=== PATIENT | male | born 1955 | race Caucasian/White ===

== ENCOUNTER 2019-12-16 16:14 | Outpatient (REF) | payer OTHER, SELFPAY ==
[2019-12-16 17:16] LABS: Blood Urea Nitrogen 16 mg/dL (9-16); Estimated Glomerular Filt Rate > 60
== END 2019-12-16 16:15 | disposition home or self-care (01) ==
LOC: HO.LAB 16:14
PROVIDERS: PCP Physician Assistant Medical; Visit Provider Otolaryngology
DX: Z01.812 Encounter for preprocedural laboratory examination (principal)
CPT/HCPCS: 82565; 84520

== ENCOUNTER 2019-12-18 13:32 | Outpatient (REF) | payer OTHER, SELFPAY ==
--- NOTE | 2019-12-18 13:45 | MR_ITS ---
EXAMINATION: MR BRAIN WITHOUT AND WITH CONTRAST CLINICAL INFORMATION: Sensorineural hearing loss, bilateral. COMPARISON: None available. TECHNIQUE: Multiplanar, multisequence imaging of the brain was performed before and after the intravenous administration of 9 mL of Gadavist. FINDINGS: The inner ear structures including the cochlea, vestibules, and semicircular canals exhibit preserved CSF signal intensity with no pathologic enhancement. The vestibular aqueducts are not enlarged. Cranial nerves VII and VIII complexes are normal in morphology. No enhancing cerebellopontine angle/retrocochlear lesion. There is no intracranial mass or abnormal intracranial enhancement. There is no acute infarction. There is no intracranial hemorrhage or extra axial collection. The ventricles, sulci, and basilar cisterns are normal in size and configuration. The flow voids of the major intracranial arteries appear intact. The bones and extracranial soft tissues are within normal limits. Small mucosal retention cyst is seen within the right sphenoid sinus. MR/MR head/brain wo/w con IMPRESSION: No vestibular schwannoma or retrocochlear lesion. No acute intracranial abnormality.
== END 2019-12-18 13:33 | disposition home or self-care (01) ==
LOC: HO.MRI 13:32
PROVIDERS: PCP Physician Assistant Medical; Visit Provider Otolaryngology
DX: H90.3 Sensorineural hearing loss, bilateral (principal)
CPT/HCPCS: 70553

== ENCOUNTER → 2019-12-23 07:55 | Outpatient (BNVA) | payer OTHER, SELFPAY | PROVIDERS: PCP Nurse Practitioner Family; Referring Provider Nurse Practitioner Family; Visit Provider Psychiatry & Neurology Neurology | DX: G47.33 Obstructive sleep apnea (adult) (pediatric) (principal) ==

== ENCOUNTER 2020-02-26 09:58 | Outpatient (REF) | payer OTHER, SELFPAY ==
[2020-02-26 10:49] LABS: Appearance Urine CLEAR; Color Urine YELLOW; Glucose Urine UA NEG (NEG); Leukocyte Esterase Urine NEG (NEG); Nitrite Urine NEG (NEG); PH 7.5 (5.0-8.0); Specific Gravity - Urine 1.015 (1.005-1.025); Urine Blood NEG (NEG); Urine Ketones NEG (NEG); Urine Protein NEG (NEG-TRACE)
[2020-02-26 10:54] LABS: Basophils Percent Auto 0.3 % (0-2); Eosinophils Percent Auto 0.7 % (0-4); Hematocrit 46.7 % (42-52); Imm Gran Abs Auto 0.01 X10*3/uL (0.00-0.03); Imm Gran Pct Auto 0.2 % (0.0-0.4); Lymphocytes Absolute Auto 1.4 X10*3/uL (1.2-4.9); Lymphocytes Percent Auto 23.3 % (20-40); MANUAL DIFF FLAG SCAN; Mean Corpuscular HGB Conc 32.1 g/dl (31.0-36.0); Mean Corpuscular Hemoglobin 31.4 pg (27.0-33.0); Mean Corpuscular Volume 97.9 fL (80-98); Mean Platelet Volume 12.2 fL (9.4-12.4); Monocytes Absolute Auto 0.4 X10*3/uL (0.1-1.2); Monocytes Percent Auto 7.5 % (2-11); PLT CLUMP 1; Red Blood Count 4.77 X10*6/uL (4.60-5.80); Red Cell Distribution Width 13.6 % (11.0-16.0); SCAN SMEAR FLAG 1
[2020-02-26 11:16] LABS: Alanine Aminotransferase 29 U/L (0-40); Albumin Level 4.4 g/dL (3.5-5.0); Alkaline Phosphatase 52 U/L (39-117); Anion Gap 14 (12-20); Aspartate Amino Transferase 24 U/L (5-37); Bilirubin Direct 0.3 mg/dL (0.0-0.5); Blood Urea Nitrogen 16 mg/dL (9-16); Calcium 9.5 mg/dL (8.4-10.2); Carbon Dioxide 25 mmol/L (22-29); Chloride 106 mmol/L (96-108); Cholesterol 228 mg/dL; Estimated Glomerular Filt Rate > 60; Glucose Random 93 mg/dL (60-115); HDL Cholesterol 54 mg/dL; LDL Cholesterol Calculated 156 mg/dl; Potassium 4.9 mmol/l (3.3-5.1); Sodium 140 mmol/L (135-145); Total Protein 6.9 g/dL (6.5-8.0); Triglycerides 94 mg/dL
[2020-02-26 11:29] LABS: White Blood Count 5.9 X10*3/uL (4.8-10.8)
[2020-02-26 11:30] LABS: Platelet Count 90 X10*3/uL (160-400); SLIDE REVIEW VERIFIED
[2020-02-26 11:36] LABS: Prostate Specific Antigen 0.81 ng/mL (<0.05-4.0)
[2020-02-27 04:23] LABS: SARS COV2 IgG Negative (Negative)
== END 2020-02-26 09:59 | disposition home or self-care (01) ==
LOC: HO.LAB 09:58
PROVIDERS: PCP Physician Assistant Medical; Visit Provider Physician Assistant Medical
DX: Z00.00 Encounter for general adult medical examination without abnormal findings (principal); G25.0 Essential tremor; F41.9 Anxiety disorder, unspecified; G47.33 Obstructive sleep apnea (adult) (pediatric); Z20.828 Contact with and (suspected) exposure to other viral communicable diseases
CPT/HCPCS: 36415; 80048; 80061; 80076; 81003; 84153; 85025; 86769

== ENCOUNTER 2020-03-05 15:58 | Outpatient (REF) | payer OTHER, SELFPAY ==
--- NOTE | 2020-03-05 16:45 | MR_ITS ---
MR LUMBAR SPINE WITHOUT CONTRAST CLINICAL INFORMATION: Chronic right-sided back pain. COMPARISON: Lumbar spine MRI 04/15/2013. TECHNIQUE: MRI of the lumbar spine was obtained using routine sequences without contrast. FINDINGS: There are 5 nonrib-bearing lumbar-type vertebral bodies. At T10-T11, there is a partially imaged left paracentral disc protrusion that flattens the ventral cord resulting in mild narrowing of the central canal. Vertebral body heights are maintained. There is mild disc volume loss there is disc desiccation at all lumbar levels. Modic type I endplate signal changes at L2-L3 and L3-L4. There is no additional bone marrow edema. There are no acute fractures. Multilevel endplate osteophytes. Conus terminates at T12-L1 level. Bilateral perinephric stranding. Right greater than left hydronephrosis versus parapelvic cysts that can be further assessed with CT. L1-L2: Significant increase in size of a left paracentral/left lateral disc protrusion that results in new mass effect on the traversing left L2 nerve root within the left subarticular zone and increasing mass effect on the extraforaminal left L1 nerve root. L2-L3: There is a diffuse annular disc bulge and there is moderate bilateral facet arthropathy and ligamentum flavum thickening. Findings in concert result in mild central canal stenosis, bilateral subarticular zone stenosis with mass effect on the traversing L3 nerve roots bilaterally, and mild bilateral foraminal encroachment. Findings have progressed. L3-L4: Diffuse annular disc bulge with a superimposed new far left lateral disc protrusion that results in mass effect on the extraforaminal left L3 nerve root. No central canal stenosis. Disc osteophyte and facet arthropathy result in moderate right foraminal stenosis with mass effect on the exiting right L3 nerve root that has progressed. L4-L5: There is a new inferiorly migrating left paracentral disc extrusion that results in mass effect on the traversing left L5 nerve root within the left subarticular zone and progressive disc osteophyte and facet arthropathy result in worsening moderate bilateral foraminal stenosis with mass effect on the exiting L4 nerve roots bilaterally. L5-S1: Shallow central disc protrusion associated with an annular fissure mildly indents the ventral thecal sac which is unchanged. Progressive far left lateral disc osteophyte protrusion compressing the extra foraminal left L5 nerve root. MR/MR lumbar spine wo con IMPRESSION: - At L5-S1, a left lateral disc osteophyte protrusion is increased in size, resulting in compression of the extraforaminal left L5 nerve root. - At L4-L5, there is a new in fairly migrating left paracentral disc extrusion that results in mass effect on the traversing left L5 nerve root within the left subarticular zone and progressive spondylitic changes result in worsening moderate bilateral foraminal stenosis with mass effect on the exiting L4 nerve roots bilaterally. - At L3-L4, a new far left lateral disc protrusion results in mass effect on the extraforaminal left L3 nerve root and progressive spondylitic changes result in worsening moderate right foraminal stenosis with mass effect on the exiting right L3 nerve - At L2-L3, progressive multifactorial degenerative changes result in worsening bilateral subarticular zone stenosis with mass effect on the traversing L3 nerve roots bilaterally. - At L1-L2, there has been an increase in size of a left paracentral/left lateral disc protrusion that results in new mass effect on the traversing left L2 nerve root within the left subarticular zone and increasing mass effect on the extraforaminal left L1 nerve root. - At T10-T11, there is a partially imaged left paracentral disc protrusion that flattens the ventral cord resulting in mild narrowing of the central canal. - Right greater than left hydronephrosis versus parapelvic cysts that can be further assessed with CT.
== END 2020-03-05 15:59 | disposition home or self-care (01) ==
LOC: HO.MRI 15:58
PROVIDERS: Visit Provider Physician Assistant Medical
DX: M54.9 Dorsalgia, unspecified (principal)
CPT/HCPCS: 72148

== ENCOUNTER 2020-03-18 14:44 | Outpatient (REF) | payer OTHER, SELFPAY ==
--- NOTE | 2020-03-18 | CT_ITS ---
EXAMINATION: CT ABDOMEN AND PELVIS WITHOUT CONTRAST CLINICAL INFORMATION: Hydronephrosis. COMPARISON: None TECHNIQUE: Multidetector volumetric imaging was performed from the superior aspect of the liver through the pubic symphysis. Sagittal and coronal reformatted images were obtained on the technologist's workstation. This CT examination was performed using dose optimization techniques as appropriate, variously including the following: *Automated exposure control *Adjustment of mA and/or kV according to patient size (this includes techniques or standardized protocols for targeted exams where dose is matched to indication/reason for exam; i.e. extremities or head) *Use of iterative reconstruction technique DLP: 627 mGy-cm FINDINGS: LUNG BASES: The visualized lung bases are unremarkable. LIVER, GALLBLADDER, AND BILIARY TREE: The liver is normal in size, slightly lobulated shape, and attenuation. No focal hepatic lesion or biliary ductal dilatation is present. The gallbladder is unremarkable with no evidence of radiopaque gallstones, gallbladder wall thickening, or obvious pericholecystic inflammatory changes. PANCREAS: Unremarkable. SPLEEN: Unremarkable. ADRENAL GLANDS: Unremarkable. KIDNEYS AND URETERS: The kidneys are normal in size, shape, and attenuation. No hydronephrosis, hydroureter, or calculi seen. No perinephric stranding. There are multiple peripelvic cysts in the right kidney. The largest cyst measures 4.5 x 3.3 cm. Differential diagnosis may include a large extrarenal kidney pelvis. However, there is no hydronephrosis suspected. A small left extrarenal kidney pelvis is noted. BLADDER: There is minimal bladder wall thickening. GASTROINTESTINAL TRACT: There is scattered stool and diverticula seen throughout the colon without any diverticulitis. The small bowel loops are normal caliber. The stomach is nondistended and appears unremarkable. ABDOMINAL WALL: No significant hernia is appreciated. LYMPH NODES: Normal. VASCULAR: Unremarkable. PELVIC VISCERA: The prostate gland is enlarged with scattered central and peripheral calcifications. No hernia or abnormal lymph nodes seen. OSSEOUS STRUCTURES: There are degenerative disc changes at the L2-L3, L3-L4 and L4-L5 disc levels with vacuum disc phenomenon and ventral spondylosis. CT/CT abdomen pelvis wo con IMPRESSION: Diffuse colonic diverticulosis without diverticulitis. Mild constipation. Right renal peripelvic cysts. Question extrarenal right renal pelvis/cyst versus UPJ. Doubt hydronephrosis. A small extrarenal left renal pelvis is seen, as well.
== END 2020-03-18 14:45 | disposition home or self-care (01) ==
LOC: HO.CT 14:44
PROVIDERS: PCP Physician Assistant Medical; Visit Provider Physician Assistant Medical
DX: N13.30 Unspecified hydronephrosis (principal)
CPT/HCPCS: 74176

== ENCOUNTER → 2020-04-01 14:20 | Outpatient (BNVA) | payer OTHER, SELFPAY | PROVIDERS: PCP Physician Assistant Medical; Visit Provider Internal Medicine | DX: R00.1 Bradycardia, unspecified (principal); I44.7 Left bundle-branch block, unspecified; I10 Essential (primary) hypertension; G47.33 Obstructive sleep apnea (adult) (pediatric); Z99.89 Dependence on other enabling machines and devices; Z82.41 Family history of sudden cardiac death | CPT/HCPCS: 93005 ==

== ENCOUNTER → 2020-05-05 13:52 | Outpatient (REF) | payer OTHER, SELFPAY ==
--- NOTE | 2020-05-05 13:56 | CA_ITS ---
Transthoracic Echocardiogram Patient (Last, First, Middle): Jensen Judd A Gender: Male Date of : 1955 Age: 65 Procedure Date: 05/05/2020 Procedure Type: Transthoracic Echocardiogram Location: OP Height: 172.72 cm Weight: 88.91 kg BSA: 2.03 m2 Heart Rate: bpm BP: 122 / 60 mmHg Quality Engineering Manager: Referring MD: Kristian Aggarwal MD Library Paraprofessional: Sae Avila MD Symptoms: I44.7 - Left bundle-branch block, unspecified Study Quality: Good ECG Rhythm: Sinus Conclusions: - 1. Normal LV systolic function with impaired relaxation filling pattern 2. Normal cardiac valvular Doppler 3. Normal RV systolic pressure 4. No pericardial effusion Findings Left Ventricle Normal left ventricular size, thickness, and systolic function. The visually estimated ejection fraction is between 55-60%. There is paradoxical septal motion consistent with a left bundle branch block. Spectral Doppler is indicative of an impaired relaxation filling pattern. E/E prime ratio is between 8 and 15 consistent with indeterminate filling pressures. Right Ventricle Normal right ventricular cavity size and systolic function. Atria Both atria are normal in size. There is lipomatous hypertrophy of the interatrial septum. There is no evidence of interatrial shunt. Aortic Valve There is mild calcification of the aortic valve. There is no aortic valve stenosis. There is no aortic valve regurgitation. Mitral Valve Normal mitral valve structure and function. There is trace mitral valve regurgitation. There is no mitral valve stenosis. Pulmonic Valve The pulmonic valve is likely normal. Tricuspid Valve Normal tricuspid valve structure. There is trace tricuspid valve regurgitation. The right ventricular systolic pressure is normal. The right ventricular systolic pressure is 21 mmHg. Normal right atrial pressure. There is no evidence of pulmonary hypertension. Great Vessels All visible segments of the aorta are normal in size. The pulmonary artery was not well visualized. Venous The inferior vena cava is normal in size and collapses greater than 50% with inspiration. Pericardium/Pleural There is no evidence of pericardial effusion. Prior Study Comparison No significant change compared to prior study dated: 08/10/2015. Measurements 2D Linear Measurements IVSd: 1.04 0.6-0.9/0.6-1.0 cm LVIDd: 4.87 3.9-5.3/4.2-5.9 cm LVIDd Index: 2.40 2.4-3.2/2.2-3.1 cm/m2 LVIDs: 3.05 2.0-3.6 cm LVPWd: 1.09 0.7-1.1 cm Ao Root: 3.50 2.1-3.5 cm LA Diam: 3.60 2.7-3.8/3.0-4.0 cm LAIDs Index: 1.77 1.5-2.3 cm/m2 LV Mass: 236.60 67-162/88-224 g LV Mass Index: 116.55 43-95/49-115 g/m2 LVOT Diam: 2.10 3.0+(-)1.3 cm 2D Systolic Function EF 4C: 50.30 >55% EF 2C: 62.80 >55% EF BiP: 57.70 >55% Mitral Valve MV Pk E: 0.76 MV PK A: 0.84 MV Decel Time: 296.00 E/A: 0.90 E'Lateral: 9.09 E'Medial: 5.51 E/E' Med: 13.70 E/E' Lat: 8.30 PHT: 87.00 MVA PHT: 2.53 Decel Treasure: 2.56 Aortic Valve AoV Pk Everett: 1.77 AoV Mn Everett: 1.18 AoV VTI: 0.40 AoV Pk Grad: 13.00 Aov Mn Grad: 7.00 SOFIA Cont.VTI: 1.82 LVOT LVOT Pk Everett: 1.03 LVOT Mn Everett: 0.74 LVOT VTI: 0.21 LVOT Pk Grad: 4.00 LVOT Mn Grad: 3.00 LVOT Diam: 2.10 LVOT Area: 3.46 Diastolic Function MV Pk E: 0.76 MV Pk A: 0.84 E/A: 0.90 E'Medial: 5.51 E/E' Med: 13.70 E' Laterial: 9.09 E/E' Lat: 8.30 Tricuspid Valve TR Pk Everett: 2.14 TR Pk Grad: 18.00 RA Press: 3.00 RVSP: 21.00 Great Vessels Aorta Ao Root-2D: 3.50 2.0-3.7 cm Ao Asc: 3.50 2.1-3.4 cm Pulmonary Valve PV Pk Everett: 1.08 Peak PV Grad: 5.00 Updated in Other Vendor System with Status of Final Sae Avila MD electronically signed on 05/05/2020 3:59:49 PM with status of Final
== END ==
LOC: HO.CARD 13:52
PROVIDERS: Visit Provider Internal Medicine
DX: I44.7 Left bundle-branch block, unspecified (principal)
CPT/HCPCS: 93306

== ENCOUNTER → 2020-05-25 10:21 | Outpatient (BNVA) | payer OTHER, SELFPAY | PROVIDERS: PCP Physician Assistant Medical; Visit Provider Psychiatry & Neurology Neurology ==

== ENCOUNTER 2020-08-16 15:00 | Outpatient (RCR) | payer OTHER, SELFPAY | END 2020-09-30 10:48 | disposition home or self-care (01) | LOC: HO.PT 15:00 | PROVIDERS: PCP Physician Assistant Medical; Visit Provider Physician Assistant | DX: M53.3 Sacrococcygeal disorders, not elsewhere classified (principal) | CPT/HCPCS: 97014; 97110; 97140; 97161; 97530 ==

== ENCOUNTER 2020-11-18 09:08 | Outpatient (REF) | payer OTHER, SELFPAY ==
--- NOTE | 2020-11-18 11:53 | MHC.AU.ANR ---
Adult Audiological Evaluation Date of Visit: 11/18/20 Reason for Appointment: Audiological re-evaluation due to concern for decreased hearing. Mr. Judd has a known bilateral, asymmetrical, sensorineural hearing loss, worse in the right ear. Following his last hearing evaluation in 2019, Mr. Judd followed up with ENT in regards to his asymmetric hearing. An MRI ruled out retrocochlear pathology. Mr. Judd feels he is now experiencing more difficulty understanding speech due to his hearing loss and often has to ask for repetition. He also has constant tinnitus in the right ear. Does patient feel they have a hearing loss?: Yes If Yes, Which Ear?: Both Ears Has hearing been tested previously?: Yes Previous Hearing Test Results: [facility] [place] - Mild to moderate sensorineural hearing loss in the right ear. Normal sloping to mild/moderate high-frequency sensorineural hearing loss in the left ear. Hearing Handicap Inventory: HHIE SCORE: 32 Based on HHIE score, patient has: Severe perceived hearing handicap Ear History: Bothersome Tinnitus/Ringing/Noises in Ears: Right Ear Blocked/Full Sensation in Ear(s): Right Ear History of occupational noise exposure?: Yes Medical History: Medical History: Headache, High Blood Pressure, Measles, Migraines, Mumps, Tobacco Use Medical History (Other): Total knee replacements, hernias Medication List: Sertraline 50 mg, Lisinopril 10 mg, Certrazine 10 mg, Ibuprofen 400 mg Otoscopy: Right Ear: Unremarkable Left Ear: Unremarkable Tympanometry: Tympanometry performed due to: To assess integrity of the middle ear system Right Ear: Normal Middle Ear System (Type A) Left Ear: Normal Middle Ear System (Type A) Hearing Evaluation: Transducer(s) Used: Insert Earphones, Bone Conduction Method: Conventional Audiometry Stimuli Used: Pure Tones Right Ear: Description of Hearing: Normal hearing at 250 Hz, sloping to a mild sensorineural hearing loss 500-3000 Hz, a moderate sensorineural hearing loss at 4000 Hz, rising to a mild hearing loss at 6000 Hz, and sloping to a moderate hearing loss at 8000 Hz. Hearing in the right ear is worse than the left by 20 dBHL at 500 Hz and 15 dBHL at 1000 and 2000 Hz. Left Ear: Description of Hearing: Normal hearing from 250-2000 Hz, sloping to a moderate sensorineural hearing loss at 3000 Hz, and rising to a mild sensorineural hearing loss from 4648-4859 Hz. Speech Recognition Threshold (SRT): Method Used: Monitored Live Voice Stimuli Used: Spondee Words Right Ear: 25 dBHL Left Ear: 10 dBHL Word Discrimination: Method: Recorded Lists Word Lists Used: NU-6 Right Ear: 96% at 70 dBHL Left Ear: 100% at 55 dBHL Comparison: Compared to the most recent evaluation: Hearing is stable. Recommendations: Audiological re-evaluation in one year. Trial with amplification is recommended. Mr. Judd is interested in trying a hearing aid for the right ear. His is a full-time [facility] and he may qualify for an employee discount. Discussed hearing aid technologies, styles, and options. He is interested in a MOY style hearing aid. Recommended that his contact HR to see if they qualify for the employee discount, then return for a hearing aid consultation to further discuss and pick out a hearing aid. Diagnosis: Primary Diagnosis: H90.3 Bilateral Sensorineural Hearing Loss Services Performed: Services Performed: Comprehensive Audiological Evaluation (CPT 02485) Tympanometry (CPT 28053) Signature: Provider: Thais Ownes, CCC-A
--- NOTE | 2020-11-18 11:55 | MHC.AU.MED ---
Medical Clearance for Hearing Instrumentation Date: 11/24/20 Patient Name: Jensen Judd Date of : 1955 Referring Provider: CHRIS Hitchcock We have seen your patient on 11/18/20 and have determined that they are a candidate for amplification (See accompanying report). Specifically, they would benefit from: Hearing aid use in the right ear There is a statute that addresses Medical Evaluation Requirements prior to fitting a patient with a hearing aid. According to [place] statute 265 CMR:6.03(1), (a) General. Except as provided in 265 CMR 6.03(1)(b), a metal hanging helper shall not sell a hearing aid unless the prospective user has presented to the metal hanging helper a written statement signed by a licensed physician that states that the patient's hearing loss has been medically evaluated and the patient may be considered a candidate for a hearing aid. The medical evaluation must have taken place within the preceding six months. Please note: Due to the [place] Statute referenced above, we cannot accept a signature other than that of a licensed physician. SAS ADMINISTRATOR and PA signatures cannot be accepted. I am in agreement with the above recommendation. There is no medical contraindication for hearing instrumentation. Physician Signature Date Physician Name (Printed)
== END 2020-11-18 09:09 | disposition home or self-care (01) ==
LOC: HO.SH 09:08
PROVIDERS: Visit Provider Physician Assistant Medical
DX: H90.3 Sensorineural hearing loss, bilateral (principal)
CPT/HCPCS: 92557; 92567

== ENCOUNTER 2020-12-14 10:55 | Outpatient (REF) | payer OTHER, SELFPAY | END 2020-12-14 10:56 | disposition home or self-care (01) | LOC: HO.LAB 10:55 | PROVIDERS: PCP Physician Assistant Medical; Visit Provider Internal Medicine | DX: Z20.822 Contact with and (suspected) exposure to COVID-19 (principal) | CPT/HCPCS: C9803; U0003; U0005 ==

== ENCOUNTER 2021-01-07 09:21 | Outpatient (REF) | payer SELFPAY ==
--- NOTE | 2021-01-07 16:00 | MHC.AU.HAS ---
Hearing Aid Evaluation Date of Visit: 01/07/21 Historical Information: Description of Hearing: Mild to moderate asymmetrical sensorineural hearing loss, right ear worse than left. Current personal amplification information, if applicable: None Summary: Mr. Judd is interested in purchasing a hearing aid for the right ear only. He and his were approved by HR for the 25% employee discount. Discussed hearing aid options. He is interested in a MOY style hearing aid with mid-range technology. 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 He uses a Panjo smart phone. Hearing Aid Prescription: Based on the individual?s shared listening needs, communication environments, dexterity, desire for connectivity, and personal preferences, the following prescription for amplification has been made: Right ear: Intensive Care Medicine Specialist: Jaco Solarsi Model: [employer]o [id number] Battery Size: 13 Color: P5- Champagne Bander Operator: Size 1 M Type of Dome: Open Plan of Care: Medical Clearance to be requested from PCP/ENT. Hearing Instrument Fitting to be scheduled when materials arrive. Hearing aid ordered. Quoted $1575 with the employee discount. Paid $350 deposit today. Owes $1225 at fitting. Primary Diagnosis: H90.3 Bilateral Sensorineural Hearing Loss Signature: Provider: Thais Owens, CCC-A
== END 2021-01-07 09:22 | disposition home or self-care (01) ==
LOC: HO.HAP 09:21
PROVIDERS: Visit Provider Physician Assistant Medical
DX: Z46.1 Encounter for fitting and adjustment of hearing aid (principal); H90.3 Sensorineural hearing loss, bilateral
CPT/HCPCS: 92591

== ENCOUNTER 2021-01-25 08:17 | Outpatient (REF) | payer SELFPAY | END 2021-01-25 08:18 | disposition home or self-care (01) | LOC: HO.HAP 08:17 | PROVIDERS: Visit Provider Physician Assistant Medical | DX: Z46.1 Encounter for fitting and adjustment of hearing aid (principal); H91.03 Ototoxic hearing loss, bilateral | CPT/HCPCS: V5257 ==

== ENCOUNTER 2021-02-10 09:35 | Outpatient (REF) | payer SELFPAY ==
--- NOTE | 2021-02-10 16:03 | MHC.AU.HFU ---
Hearing Instrument Follow-Up- Binaural Date of Visit: 02/10/21 Right Ear: Lithographic Proofer: Phonak Model: Alereoneo [id number] Serial Number: [id number] Repair Warranty: 04/11/2024 Loss and Damage Warranty: 04/11/2024 Battery Size: 13 Color: P5- Donna Campaign Developer: Size 1 M Type of Dome: Small open Type of Wax Guard: Cerushield Dispensed By: [facility] Date of Fittin01/25/21 Follow-Up Summary: Hearing aid follow-up: Mr. Judd notes that things are overall going well with the hearing aid. He notes that some noises he found loud at first, but he's already adapting and getting used to it. He does not feel he needs any adjustments at this time. Mr. Judd got a bill for $87.50 for the hearing aids. The hearing aid cost is $2100. He had a 25% discount and was quoted a total of $1575. He paid the $350 deposit on 01/07/21 ( ). He then owed $1225 for the remainder of the cost, which he paid at his hearing aid fitting on 01/25/21 ( ). When billed, the cost of the monaural hearing aid less the $350 is $1750. It appears that the 25% discount was only applied to the $1750, and not the total cost of the aid ($2100), which resulted in Mr. Judd being billed $87.50. Will discuss with supervisor fabrication department Macy Conner and the billing department. Recommendations: Recommendations: Hearing instrument maintenance in 6 months, or sooner if needed. Please contact our clinic with any questions or concerns. Diagnosis Code(s): Primary Diagnosis: H90.3 Bilateral Sensorineural Hearing Loss Signature: Provider: Thais Owens, [facility]
== END 2021-02-10 09:36 | disposition home or self-care (01) ==
LOC: HO.HAP 09:35
PROVIDERS: Visit Provider Physician Assistant Medical
DX: Z13.89 Encounter for screening for other disorder (principal)

== ENCOUNTER → 2021-04-04 12:44 | Outpatient (BNVA) | payer OTHER, SELFPAY | PROVIDERS: PCP Physician Assistant Medical; Referring Provider Physician Assistant Medical; Visit Provider Internal Medicine | DX: I44.7 Left bundle-branch block, unspecified (principal); I10 Essential (primary) hypertension; R00.1 Bradycardia, unspecified; G47.33 Obstructive sleep apnea (adult) (pediatric) | CPT/HCPCS: 93005; 99212 ==

== ENCOUNTER 2021-04-25 11:40 | Outpatient (REF) | payer OTHER, SELFPAY ==
[2021-04-25 12:18] LABS: MANUAL DIFF FLAG NO
[2021-04-25 12:44] LABS: Basophils Percent Auto 0.3 % (0-2); Eosinophils Absolute Auto 0.1 X10*3/uL (0.0-0.4); Eosinophils Percent Auto 0.8 % (0-4); Hematocrit 44.7 % (42.0-52.0); Hemoglobin 14.5 g/dl (14.0-18.0); Imm Gran Abs Auto 0.02 X10*3/uL (0.00-0.03); Imm Gran Pct Auto 0.3 % (0.0-0.4); Lymphocytes Percent Auto 31.1 % (20-40); Mean Corpuscular HGB Conc 32.4 g/dl (31.0-36.0); Mean Corpuscular Hemoglobin 31.4 pg (27.0-33.0); Mean Corpuscular Volume 96.8 fL (80.0-98.0); Mean Platelet Volume 11.4 fL (9.4-12.4); Monocytes Absolute Auto 0.5 X10*3/uL (0.1-1.2); Monocytes Percent Auto 7.5 % (2-11); Neutrophils Absolute Auto 3.8 x10*3/uL (2.0-8.3); Platelet Count 123 X10*3/uL (160-400); Red Blood Count 4.62 X10*6/uL (4.60-5.80); Red Cell Distribution Width 13.8 % (11.0-16.0); White Blood Count 6.4 X10*3/uL (4.8-10.8)
[2021-04-25 13:00] LABS: Alanine Aminotransferase 19 U/L (0-40); Albumin Level 4.2 g/dL (3.5-5.0); Alkaline Phosphatase 55 U/L (39-117); Anion Gap 11 (12-20); Aspartate Amino Transferase 18 U/L (5-37); Bilirubin Direct 0.4 mg/dL (0.0-0.5); Bilirubin Total 1.2 mg/dL (0.0-1.0); Blood Urea Nitrogen 19 mg/dL (9-16); Calcium 9.8 mg/dL (8.4-10.2); Carbon Dioxide 27 mmol/L (22-29); Chloride 105 mmol/L (96-108); Cholesterol 207 mg/dL; Estimated Glomerular Filt Rate > 60; Glucose Random 89 mg/dL (60-115); HDL Cholesterol 49 mg/dL; LDL Cholesterol Calculated 131 mg/dl; Potassium 5.1 mmol/L (3.3-5.1); Sodium 138 mmol/L (135-145); Total Protein 6.7 g/dL (6.5-8.0); Triglycerides 138 mg/dL
[2021-04-25 13:46] LABS: Appearance Urine CLEAR; Color Urine YELLOW; Glucose Urine UA NEG (NEG); Leukocyte Esterase Urine 1+ (NEG); Nitrite Urine NEG (NEG); Urine Blood NEG (NEG); Urine Ketones NEG (NEG); Urine Protein NEG (NEG-TRACE)
[2021-04-25 14:11] LABS: RBC Urine 0 /HPF (0)
== END 2021-04-25 11:41 | disposition home or self-care (01) ==
LOC: HO.LAB 11:40
PROVIDERS: PCP Physician Assistant Medical; Visit Provider Physician Assistant Medical
DX: Z00.00 Encounter for general adult medical examination without abnormal findings (principal); G25.0 Essential tremor; Z87.891 Personal history of nicotine dependence; Z12.5 Encounter for screening for malignant neoplasm of prostate
CPT/HCPCS: 36415; 80048; 80061; 80076; 81001; 85025

== ENCOUNTER → 2021-06-07 09:19 | Outpatient (BNVA) | payer OTHER, SELFPAY | PROVIDERS: PCP Physician Assistant Medical; Visit Provider Psychiatry & Neurology Neurology | DX: Z13.89 Encounter for screening for other disorder (principal) ==

== ENCOUNTER 2021-07-20 12:27 | Day surgery (SDC) | payer OTHER, SELFPAY ==
--- NOTE | 2021-07-19 09:22 | HO.ANESPROP2 ---
Documented by User: Hannah Mcginnis NP 07/19/21 09:24 HPI - Anesthesia Eval Consult details Narrative: 66yo M for Colonoscopy [facility] Active Problems Active Problems: All Active Problems (Updated 04/01/20 @ 15:54 by Kristian Aggarwal MD) Sinus bradycardia (Acute) Essential hypertension (Acute) Family history of sudden cardiac in son (Acute) LBBB (left bundle branch block) (Acute) Obstructive sleep apnea (Acute) Past Medical History Medical History Essential hypertension Family history of sudden cardiac in son LBBB (left bundle branch block) Sinus bradycardia Family History Family History Father Myocardial infarction Brother HTN (hypertension) Sister Melanoma Surgical History Surgical History (Updated 07/20/21 @ 12:42 by Raisa Swanson RN) History of total bilateral knee replacement (TKR) Hx of colonoscopy Hx of inguinal hernia surgery Social History Social History Household Members: Spouse Alcohol intake: current Alcohol intake frequency: a few times a week Patient Tobacco Use Status: Never used Tobacco Advance Directives: No Advance Directives Information Provided: Yes Current occupational status: employed Current occupation: [employer] Allergies Allergy/AdvReac Type Severity Reaction Status Date / Time No Known Allergies Allergy Verified 06/07/21 09:39 Home Medications Medication Instructions Recorded Confirmed Last Taken Type azelastine 137 mcg (0.1 %) nasal 2 spray INTRANASAL BID 04/01/20 04/04/21 Unknown History spray aerosol cetirizine 10 mg tablet (Zyrtec) 10 mg PO DAILY PRN 04/01/20 04/04/21 Unknown History sertraline 50 mg tablet 50 mg PO DAILY 04/01/20 04/04/21 Unknown History losartan 25 mg tablet 25 mg PO DAILY 06/07/21 07/20/21 History Exam Exam Date and Time: July 19, [id number] Pertinent Lab Results Pertinent Lab Results: Laboratory Tests 04/25/21 04/25/21 12:16 12:16 WBC 6.4 Hgb 14.5 Hct 44.7 Plt Count 123 L Sodium 138 Potassium 5.1 Chloride 105 Carbon Dioxide 27 BUN 19 H Creatinine 1.05 Narrative Narrative: EKG 03/2021 sinus bradycardia, 54/Min; nonspecific interventricular conduction but more towards left bundle-branch block. ECHO 04/2020 Conclusions: - 1. Normal LV systolic function with impaired relaxation filling pattern? 2. Normal cardiac valvular Doppler ? 3. Normal RV systolic pressure ? 4. No pericardial effusion ? ? Assessment and Plan Assessment Anesthesia Assessment: Chart Reviewed Documented by User: Keshawn Carrillo MD 07/20/21 14:22 [facility] Past Medical History Medical History Essential hypertension Family history of sudden cardiac in son LBBB (left bundle branch block) Sinus bradycardia Family History Family History Father Myocardial infarction Brother HTN (hypertension) Sister Melanoma Family history of problems with anesthesia: No Surgical History Surgical History (Updated 07/20/21 @ 12:42 by Raisa Swanson RN) History of total bilateral knee replacement (TKR) Hx of colonoscopy Hx of inguinal hernia surgery History of Problems with Anesthesia: No Social History Social History Household Members: Spouse Alcohol intake: current Alcohol intake frequency: a few times a week Patient Tobacco Use Status: Never used Tobacco Advance Directives: No Advance Directives Information Provided: Yes Current occupational status: employed Current occupation: [employer] Allergies Allergy/AdvReac Type Severity Reaction Status Date / Time No Known Allergies Allergy Verified 06/07/21 09:39 Home Medications Medication Instructions Recorded Confirmed Last Taken Type azelastine 137 mcg (0.1 %) nasal 2 spray INTRANASAL BID 04/01/20 04/04/21 Unknown History spray aerosol cetirizine 10 mg tablet (Zyrtec) 10 mg PO DAILY PRN 04/01/20 04/04/21 Unknown History sertraline 50 mg tablet 50 mg PO DAILY 04/01/20 04/04/21 Unknown History losartan 25 mg tablet 25 mg PO DAILY 06/07/21 07/20/21 History Exam Airway Mallampati Class: II TM Dist: >3cm Neck ROM: Full Partial: Upper Heart: rrr+[id number] Lungs: cta b/l Assessment and Plan Assessment Anesthesia Assessment: Anesthesia Plan Discussed Final Anesthetic Review Family History of Problems with Anesthesia: No History of Problems with Anesthesia: No NPO: Yes ASA Class: III Final Preanesthetic Review: No Changes in Pt Med Stat, Meds/Allgs Chart Reviewed, Consent Obtained/Reviewed and Anes Risks/Benef Reviewed Patient Risk: Intermediate Procedure Risk: Low Assessment/Block/Sedation in SS: Assess/Block/Sedation-SS Anesthetic Plan Anesthetic Plan: MAC: and Agree w/ Assess. and Plan Disposition: Standard PACU
[2021-07-20 10:11] VITALS: BMI 31.6
[2021-07-20 12:31] VITALS: BP 148/72; PULSE 54; RESP 17; TEMP 36.1; O2SAT 98
[2021-07-20] MEDS: Lactated Ringers 1,000 ML 100 ML IVCONT (12:52)
--- NOTE | 2021-07-20 14:22 | MHC.SHP ---
Pre-Procedural Eval Section A Date of Service: 07/20/21 The patient is an INPATIENT: No Changes since office visit: No Cold of Flu in the past 2 weeks, No New Medical Problems, No Changes in Medication and No Patient answered all questions The History & Physical has been completed within 30 days and I have reviewed it.: Yes Section B Chief Complaint: screening Allergies: Allergies Allergy/AdvReac Type Severity Reaction Status Date / Time No Known Allergies Allergy Verified 06/07/21 09:39 Plan I have reviewed the history and physical and performed a pertinent physical examination on my patient. No changes have occurred unless specified.
--- NOTE | 2021-07-20 14:55 | P.BOP_ITS ---
Brief Operative Note Date of Service: 07/20/21 Pre-op diagnosis: screening Post-op diagnosis: same (colon polyp) Procedure: colonoscopy Surgeon: Daniel Alfredo Anesthesia: MAC Was an Specification Writer used for this Procedure?: No Estimated blood loss (mL): 5 Pathology: other Condition: stable Disposition: PACU
[2021-07-20 14:57] VITALS: BP 94/44; PULSE 54; RESP 16; TEMP 36.4; O2SAT 95
[2021-07-20 15:13] VITALS: BP 110/57; PULSE 57; RESP 18; TEMP 36.4; O2SAT 97
--- NOTE | 2021-07-21 04:58 | OP_ITS ---
SURGEON: Daniel Alfredo MD INDICATIONS: Colon cancer screening and prior history of adenomatous colon polyps. PREOPERATIVE DIAGNOSIS: POSTOPERATIVE DIAGNOSIS: PROCEDURE PERFORMED: ESTIMATED BLOOD LOSS: COMPLICATIONS: ANESTHESIA: ASSISTANTS: SPECIMENS: PROCEDURE: Colonoscopy to the terminal ileum with snare polypectomy and biopsy. MEDICATIONS: Monitored anesthesia care. DESCRIPTION OF PROCEDURE: The history and physical were performed. The risks and benefits of the procedure were explained to the patient. Informed consent was obtained. The patient was placed in the left lateral decubitus position. A digital rectal exam was performed and was found to be normal. The Olympus pediatric videocolonoscope was introduced into the rectum and advanced to the cecum without difficulty. The cecum was identified by transillumination, palpation, and identification of the ileocecal valve. Examination was performed. The scope was removed. He tolerated the procedure well and was taken to Recovery in stable condition. FINDINGS: The terminal ileum was normal. The visualized colonic mucosa was normal. The quality of prep was good. In the cecum was an 8-mm polyp, which was removed with a snare and recovered via suction. There were no other polyps identified. There was moderate sigmoid diverticulosis with a few scattered diverticula throughout the remainder of the colon. In the rectum on retroflexed view was a 10-mm area suspicious for possible anal condyloma, which the patient has been treated for in the past. Two biopsies were obtained from this area in the vicinity of the dentate line. No other polyps were identified. Retroflexed examination was otherwise normal and small internal hemorrhoids were noted. IMPRESSION: 1. Colon polyp. 2. Rule out condyloma. MD ESTHER Rodriguez/JORGEL / [id number]
== END 2021-07-20 15:50 | disposition home or self-care (01) ==
PROVIDERS: PCP Physician Assistant Medical; Visit Provider Internal Medicine Gastroenterology
PROC: 0DJD8ZZ Inspection of Lower Intestinal Tract, Via Natural or Artificial Opening Endoscopic (ICD-10-PCS; CPT 45378; principal; 2021-07-20 13:40)
CPT/HCPCS: 88305

== ENCOUNTER 2021-09-07 16:28 | Outpatient (REF) | payer OTHER, SELFPAY ==
--- NOTE | ~2021-09-07 | US_ITS ---
EXAMINATION: US RETROPERITONEAL LIMITED (RENAL ONLY) CLINICAL INFORMATION: Cyst of kidney. COMPARISON: CT abdomen and pelvis 09/15/2020. TECHNIQUE: Real-time imaging of the kidneys. FINDINGS: RIGHT KIDNEY: 10.4 x 6.7 x 5.8 cm (SAG x AP x TRV). The kidney is normal in size, contour, and echogenicity. Renal cortical thickness is normal. No renal calculi or hydronephrosis. There is a 2.9 x 4.7 x 3.0 cm parapelvic cyst with question extrarenal pelvis. Within the midpole region there is a 1.2 x 1.1 x 1.0 cm complex cyst with soft tissue component. No definite internal vascularity is present. This has the appearance of a Bosniak 2F cyst. LEFT KIDNEY: 10.8 x 4.5 x 5.1 cm (SAG x AP x TRV). The kidney is normal in size, contour, and echogenicity. Renal cortical thickness is normal. No calculi or focal parenchymal lesions. No hydronephrosis. ADDITIONAL FINDINGS: Splenomegaly is present with vertical span of greater than 15 cm. US/US renal BI IMPRESSION: Splenomegaly. Right renal midpole complex cyst for which follow-up is recommended..
== END 2021-09-07 16:29 | disposition home or self-care (01) ==
LOC: HO.US 16:28
PROVIDERS: Visit Provider Urology
DX: N28.1 Cyst of kidney, acquired (principal)
CPT/HCPCS: 76775

== ENCOUNTER → 2021-09-08 13:48 | Outpatient (BNVA) | payer OTHER, SELFPAY | PROVIDERS: PCP Physician Assistant Medical; Referring Provider Internal Medicine Gastroenterology; Visit Provider Surgery | DX: A63.0 Anogenital (venereal) warts (principal) | CPT/HCPCS: 46600 ==

== ENCOUNTER 2021-09-30 08:54 | Day surgery (SDC) | payer OTHER, SELFPAY ==
[2021-09-23 18:01] VITALS: BMI 29.7
--- NOTE | 2021-09-28 15:11 | HO.ANESPROP2 ---
Documented by User: Hannah Mcginnis NP 09/28/21 15:16 HPI - Anesthesia Eval Consult details Narrative: 66yo M for Exam Under Anesthesia,excision of anal condyloma PMFSH Active Problems Active Problems: All Active Problems (Updated 09/23/21 @ 18:06 by Deisy Casey RN) Obstructive sleep apnea (Acute) Anal condyloma (Acute) Sinus bradycardia (Acute) Essential hypertension (Acute) Family history of sudden cardiac in son (Acute) LBBB (left bundle branch block) (Acute) Past Medical History Medical History (Updated 09/23/21 @ 18:06 by Deisy Casey RN) Anal condyloma Anxiety Essential hypertension Family history of sudden cardiac in son Kidney, benign tumor LBBB (left bundle branch block) Sinus bradycardia Family History Family History Father Myocardial infarction Brother HTN (hypertension) Sister Melanoma Family history of problems with anesthesia: No Surgical History Surgical History History of total bilateral knee replacement (TKR) Hx of colonoscopy Hx of inguinal hernia surgery History of Problems with Anesthesia: No Social History Social History Household Members: Spouse Alcohol intake: current Alcohol intake frequency: a few times a week Patient Tobacco Use Status: Never used Tobacco Use of substances other than those prescribed or required for medical reasons: No Are you DNR?: No Advance Directives: No Advance Directives Information Provided: Yes Recently lost weight without trying: No Current occupational status: employed Current occupation: [employer] Allergies Allergy/AdvReac Type Severity Reaction Status Date / Time No Known Allergies Allergy Verified 09/08/21 13:56 Home Medications Medication Instructions Recorded Confirmed Last Taken Type azelastine 137 mcg (0.1 %) nasal 2 spray intranasal BID 04/01/20 09/08/21 Unknown History spray aerosol sertraline 50 mg tablet 50 mg PO DAILY 04/01/20 09/08/21 Unknown History losartan 25 mg tablet 25 mg PO DAILY 06/07/21 09/08/21 09/30/21 History Exam Exam Date and Time: September 28, 2021 151 Height,Weight and Vital Signs: Height 5 ft 8 in Weight 88.904 kg Pertinent Lab Results Pertinent Lab Results: Laboratory Tests 04/25/21 04/25/21 12:16 12:16 WBC 6.4 Hgb 14.5 Hct 44.7 Plt Count 123 L Sodium 138 Potassium 5.1 Chloride 105 Carbon Dioxide 27 BUN 19 H Creatinine 1.05 Narrative Narrative: ECHO Conclusions: - 1. Normal LV systolic function with impaired relaxation filling pattern? 2. Normal cardiac valvular Doppler ? 3. Normal RV systolic pressure ? 4. No pericardial effusion? Assessment and Plan Assessment Anesthesia Assessment: Chart Reviewed Final Anesthetic Review Family History of Problems with Anesthesia: No History of Problems with Anesthesia: No Documented by User: Ace Hoffman MD 09/30/21 12:54 HPI - Anesthesia Eval Consult details Narrative: 66yo M for Exam Under Anesthesia,excision of anal condyloma Chronic LBBB, chronic sinus bradycardia.? As per cardiology visit , he has family history of sudden cardiac in his son who while he was a teenager and exercising on the treadmill suspected to be some cardiac arrhythmia.? Another son has atrial septal defect that was repaired and doing well.? Third son is doing well.? Patient does not have any symptoms like angina or shortness of breath . [facility] Past Medical History Medical History (Updated 09/23/21 @ 18:06 by Deisy Casey RN) Anal condyloma Anxiety Essential hypertension Family history of sudden cardiac in son Kidney, benign tumor LBBB (left bundle branch block) Sinus bradycardia Family History Family History Father Myocardial infarction Brother HTN (hypertension) Sister Melanoma Family history of problems with anesthesia: Yes (Ponv in sister ) Surgical History Surgical History History of total bilateral knee replacement (TKR) Hx of colonoscopy Hx of inguinal hernia surgery Social History Social History Household Members: Spouse Alcohol intake: current Alcohol intake frequency: a few times a week Patient Tobacco Use Status: Never used Tobacco Use of substances other than those prescribed or required for medical reasons: No Are you DNR?: No Advance Directives: No Advance Directives Information Provided: Yes Recently lost weight without trying: No Current occupational status: employed Current occupation: [employer] Allergies Allergy/AdvReac Type Severity Reaction Status Date / Time No Known Allergies Allergy Verified 09/08/21 13:56 Home Medications Medication Instructions Recorded Confirmed Last Taken Type azelastine 137 mcg (0.1 %) nasal 2 spray intranasal BID 04/01/20 09/08/21 Unknown History spray aerosol sertraline 50 mg tablet 50 mg PO DAILY 04/01/20 09/08/21 Unknown History losartan 25 mg tablet 25 mg PO DAILY 06/07/21 09/08/21 09/30/21 History Exam Airway Mallampati Class: III Neck ROM: Full Denture: Upper Loose/Missing/Broken Teeth: Yes (Poor dentition , fillings ) Heart: S1,S2 Lungs: b/l breath sounds Assessment and Plan Assessment Anesthesia Assessment: Anesthesia Plan Discussed Final Anesthetic Review Family History of Problems with Anesthesia: Yes (Ponv in sister ) NPO: Yes ASA Class: III Final Preanesthetic Review: Meds/Allgs Chart Reviewed, Consent Obtained/Reviewed and Anes Risks/Benef Reviewed Patient Risk: Intermediate Procedure Risk: Intermediate Anesthetic Plan Anesthetic Plan: GA Disposition: Standard PACU
[2021-09-30] VITALS (7 sets, daily range): BP systolic 100–126; BP diastolic 39–72; PULSE 46–63; RESP 16; TEMP 36.5–36.7; O2SAT 97–100
--- NOTE | 2021-09-30 10:02 | MHC.SHP ---
Pre-Procedural Eval Section A Date of Service: 09/30/21 The patient is an INPATIENT: No Changes since office visit: No Cold of Flu in the past 2 weeks, No New Medical Problems, No Changes in Medication and No Patient answered all questions The History & Physical has been completed within 30 days and I have reviewed it.: Yes Section B Chief Complaint: Anogenital (venereal) warts Allergies: Allergies Allergy/AdvReac Type Severity Reaction Status Date / Time No Known Allergies Allergy Verified 09/08/21 13:56 Plan I have reviewed the history and physical and performed a pertinent physical examination on my patient. No changes have occurred unless specified.
--- NOTE | 2021-09-30 11:13 | P.OP_ITS ---
Operative Note Operative Note Date of Service: 09/30/21 Narrative: Preop diagnosis: Anal condyloma Postop diagnosis: Anal condyloma Procedure: Exam under anesthesia, excision and fulguration of anal condyloma Surgeon: Brian Rutherford MD The patient is a 66-year-old male referred to me because of small condylomatous lesions in the anus seen on colonoscopy. He understood the technique of exam under anesthesia and excision and fulguration of the condylomas. He was aware of the risks, benefits, and alternatives . He was brought the operating room. He was placed in prone romain-knife position under general anesthesia via endotracheal tube.. The buttocks were retracted with wide tape laterally. The perianal area was prepped and draped in the usual sterile fashion. A surgical time-out was done. The patient received Cefotan 2 g IV preoperatively. The perianal area was infiltrated with lidocaine 1%. Examination of the a perianal skin did not reveal any large condylomatous lesions. I inserted the Claudia Uribe retractor. I examined the anal canal circumferentiall y. There was note of small condylomatous lesions scattered throughout the anal canal both and proximal to the dentate line. I excised one of the larger condylomatous lesions for pathology. I fulgurated the rest of the other smaller lesions down to agrees eschar. I repeatedly examined the entire circumference of the anal canal and there were no lesions seen at the end of the procedure. I infiltrated the perianal area with Marcaine 0.5% for post up analgesia. The patient tolerated procedure well. There were no immediate complications. There was minimal blood loss . The patient was extubated without difficulty and transferred to the recovery room with stable vital signs.
[2021-09-30] MEDS: oxyCODONE HCl Immed Release 5 MG TABLET PO (12:00)
== END 2021-09-30 12:50 | disposition home or self-care (01) ==
PROVIDERS: Visit Provider Surgery
PROC: (CPT 46922; principal; 2021-09-30 10:30)
DX: A63.0 Anogenital (venereal) warts (principal); K62.82 Dysplasia of anus; I10 Essential (primary) hypertension; I44.7 Left bundle-branch block, unspecified; R00.1 Bradycardia, unspecified; Z82.41 Family history of sudden cardiac death; Z79.899 Other long term (current) drug therapy; Z96.653 Presence of artificial knee joint, bilateral
CPT/HCPCS: 46922; 88305; J0131; J0330; J1100; J2250; J2405; J2795; J3010

== ENCOUNTER → 2022-03-23 08:30 | Outpatient (REF) | payer OTHER, SELFPAY ==
--- NOTE | 2022-03-23 08:32 | CA_ITS ---
Transthoracic Echocardiogram Patient (Last, First, Middle): Jensen Judd A Gender: Male Date of : 1955 Age: 66 Procedure Date: 03/23/2022 Procedure Type: Transthoracic Echocardiogram Location: OP Height: 172.72 cm Weight: 91.17 kg BSA: 2.05 m2 Heart Rate: bpm BP: 122 / 72 mmHg Weekend Anchor: TO Referring MD: Kristian Aggarwal MD Symptoms: I44.7 - Left bundle-branch block, unspecified Study Quality: Fair ECG Rhythm: Sinus Conclusions: - The left ventricular systolic function is normal. The calculated ejection fraction is 56% by biplane method. - No obvious valvular pathology seen on this study. Findings Left Ventricle Normal left ventricular cavity size. The left ventricular systolic function is normal. The calculated ejection fraction is 56% by biplane method. There is no evidence of regional wall motion abnormalities. Diastolic function is normal for age. There is mild septal asymmetric hypertrophy. LV peak GLS 18.8%. Right Ventricle Normal right ventricular cavity size and systolic function. Atria Both atria are normal in size. Aortic Valve There is a normal trileaflet aortic valve. There is mild calcification of the aortic valve. There is no aortic valve stenosis. There is no aortic valve regurgitation. Mitral Valve The mitral valve appears normal. There is trace mitral valve regurgitation. There is no mitral valve stenosis. Pulmonic Valve The pulmonic valve is likely normal. Tricuspid Valve Normal tricuspid valve structure. There is trace tricuspid valve regurgitation. There is no evidence of pulmonary hypertension. Great Vessels The aortic annulus, sinuses of valsalva, and asc aorta are normal in size. Venous The inferior vena cava is normal in size and collapses greater than 50% with inspiration. Pericardium/Pleural There is no evidence of pericardial effusion. Prior Study Comparison No significant change compared to prior study dated: 05/05/2020. Recommendations, Care & Conclusions No obvious valvular pathology seen on this study. Measurements 2D Linear Measurements IVSd: 1.21 0.6-0.9/0.6-1.0 cm LVIDd: 5.21 3.9-5.3/4.2-5.9 cm LVIDd Index: 2.54 2.4-3.2/2.2-3.1 cm/m2 LVIDs: 3.40 2.0-3.6 cm LVPWd: 0.81 0.7-1.1 cm LA Diam: 3.50 2.7-3.8/3.0-4.0 cm LAIDs Index: 1.71 1.5-2.3 cm/m2 LV Mass: 245.97 67-162/88-224 g LV Mass Index: 119.99 43-95/49-115 g/m2 LVOT Diam: 2.10 3.0+(-)1.3 cm 2D Systolic Function EF 4C: 50.20 >55% EF 2C: 60.20 >55% EF BiP: 56.20 >55% Mitral Valve MV Pk E: 0.58 MV PK A: 0.72 MV Decel Time: 348.00 E/A: 0.80 E'Lateral: 7.29 E'Medial: 4.68 E/E' Med: 12.50 E/E' Lat: 8.00 PHT: 102.00 MVA PHT: 2.16 Decel [place]: 1.67 Aortic Valve AoV Pk [place]: 1.59 AoV Mn [place]: 1.18 AoV VTI: 0.35 AoV Pk Grad: 10.00 Aov Mn Grad: 6.00 SOFIA Cont.VTI: 2.01 LVOT LVOT Pk [place]: 0.93 LVOT Mn [place]: 0.64 LVOT VTI: 0.21 LVOT Pk Grad: 3.00 LVOT Mn Grad: 2.00 LVOT Diam: 2.10 LVOT Area: 3.46 Diastolic Function MV Pk E: 0.58 MV Pk A: 0.72 E/A: 0.80 E'Medial: 4.68 E/E' Med: 12.50 E' Laterial: 7.29 E/E' Lat: 8.00 Right Ventricle TAPSE (mm): 26.90 TVS' [place]: 11.60 Tricuspid Valve TR Pk [place]: 2.16 TR Pk Grad: 19.00 RA Press: 3.00 RVSP: 22.00 Great Vessels Aorta Sinus of Valsalva: 3.58 2.0-3.[address] [place]: 2.97 1.7-3.4 cm Ao Asc: 3.70 2.1-3.4 cm Updated in Other Vendor System with Status of Final Kristian Aggarwal MD electronically signed on 03/25/2022 11:31:19 AM with status of Final
== END ==
LOC: HO.CARD 08:30
PROVIDERS: Visit Provider Internal Medicine
DX: I44.7 Left bundle-branch block, unspecified (principal)
CPT/HCPCS: 93306; 93356

== ENCOUNTER → 2022-04-03 08:22 | Outpatient (BNVA) | payer OTHER, SELFPAY | PROVIDERS: Visit Provider Internal Medicine | DX: R00.1 Bradycardia, unspecified (principal) | CPT/HCPCS: 93005 ==

== ENCOUNTER 2022-04-26 09:21 | Outpatient (REF) | payer OTHER, SELFPAY ==
[2022-04-26 09:36] LABS: MANUAL DIFF FLAG NO
[2022-04-26 10:48] LABS: Appearance Urine Clear; Color Urine Yellow; Glucose Urine UA Negative (Negative); Leukocyte Esterase Urine Trace (Negative); Nitrite Urine Negative (Negative); UMIC TRIGGER UA YES; Urine Blood Negative (Negative); Urine Ketones Negative (Negative); Urine Protein 30 (1+) mg/dL (Neg-Trace)
[2022-04-26 10:48] LABS: Basophils Percent Auto 0.3 % (0-2); Eosinophils Absolute Auto 0.1 X10*3/uL (0.0-0.4); Eosinophils Percent Auto 0.8 % (0-4); Hematocrit 46.3 % (42.0-52.0); Hemoglobin 15.1 g/dl (14.0-18.0); Imm Gran Abs Auto 0.01 X10*3/uL (0.00-0.03); Imm Gran Pct Auto 0.2 % (0.0-0.4); Lymphocytes Absolute Auto 1.7 X10*3/uL (1.2-4.9); Lymphocytes Percent Auto 27.6 % (20-40); Mean Corpuscular HGB Conc 32.6 g/dl (31.0-36.0); Mean Corpuscular Hemoglobin 31.3 pg (27.0-33.0); Mean Corpuscular Volume 95.9 fL (80.0-98.0); Mean Platelet Volume 11.3 fL (9.4-12.4); Monocytes Absolute Auto 0.4 X10*3/uL (0.1-1.2); Monocytes Percent Auto 7.1 % (2-11); Platelet Count 141 X10*3/uL (160-400); Red Blood Count 4.83 X10*6/uL (4.60-5.80); Red Cell Distribution Width 13.7 % (11.0-16.0); White Blood Count 6.2 X10*3/uL (4.8-10.8)
[2022-04-26 10:54] LABS: Bacteria Urine None Seen (None Seen); Hyaline Casts Urine 0-2 /LPF (0-2); RBC Urine 0-2 /HPF (0-2); Squamous Epithelial Cell Urine 0-2 /HPF (0-2); WBC Urine 0-5 /HPF (0-5)
[2022-04-26 12:13] LABS: Alanine Aminotransferase 20 U/L (0-40); Albumin Level 4.4 g/dL (3.5-5.0); Alkaline Phosphatase 60 U/L (39-117); Anion Gap 13 (12-20); Aspartate Amino Transferase 18 U/L (5-37); Bilirubin Direct 0.3 mg/dL (0.0-0.5); Bilirubin Total 1.6 mg/dL (0.0-1.0); Blood Urea Nitrogen 17 mg/dL (9-16); Calcium 9.8 mg/dL (8.4-10.2); Carbon Dioxide 27 mmol/L (22-29); Chloride 106 mmol/L (96-108); Cholesterol 235 mg/dL; Estimated Glomerular Filt Rate > 60; Glucose Random 84 mg/dL (60-115); HDL Cholesterol 46 mg/dL; LDL Cholesterol Calculated 161 mg/dl; Potassium 5.1 mmol/L (3.3-5.1); Sodium 141 mmol/L (135-145); Total Protein 7.1 g/dL (6.5-8.0); Triglycerides 142 mg/dL
[2022-04-26 12:15] LABS: Prostate Specific Antigen 0.72 ng/mL (<0.05-4.0)
== END 2022-04-26 09:22 | disposition home or self-care (01) ==
LOC: HO.LAB 09:21
PROVIDERS: PCP Physician Assistant Medical; Visit Provider Physician Assistant Medical
DX: G25.0 Essential tremor (principal); F41.9 Anxiety disorder, unspecified; K58.9 Irritable bowel syndrome, unspecified; Z87.891 Personal history of nicotine dependence; Z12.5 Encounter for screening for malignant neoplasm of prostate; I10 Essential (primary) hypertension; I44.7 Left bundle-branch block, unspecified; G47.33 Obstructive sleep apnea (adult) (pediatric); E66.3 Overweight; E78.5 Hyperlipidemia, unspecified; I30.9 Acute pericarditis, unspecified
CPT/HCPCS: 36415; 80048; 80061; 80076; 81001; 84153; 85025

== ENCOUNTER 2022-05-12 15:31 | Outpatient (REF) | payer OTHER, SELFPAY ==
[2022-05-12 19:49] LABS: Appearance Urine Clear; Color Urine Yellow; Glucose Urine UA Negative (Negative); Leukocyte Esterase Urine Trace (Negative); Nitrite Urine Negative (Negative); PH 5.5 (5.0-9.0); Specific Gravity - Urine 1.015 (1.005-1.025); UMIC TRIGGER UA YES; Urine Blood Negative (Negative); Urine Ketones Negative (Negative); Urine Protein Negative (Neg-Trace)
[2022-05-12 20:02] LABS: Bacteria Urine None Seen (None Seen); Hyaline Casts Urine 0-2 /LPF (0-2); RBC Urine 0-2 /HPF (0-2); Squamous Epithelial Cell Urine 0-2 /HPF (0-2); WBC Urine 0-5 /HPF (0-5)
== END 2022-05-12 15:32 | disposition home or self-care (01) ==
LOC: HO.LAB 15:31
PROVIDERS: PCP Physician Assistant Medical; Visit Provider Physician Assistant Medical
DX: R77.9 Abnormality of plasma protein, unspecified (principal)
CPT/HCPCS: 81001

== ENCOUNTER 2022-08-08 08:17 | Outpatient (REF) | payer OTHER, SELFPAY | END 2022-08-08 08:18 | disposition home or self-care (01) | LOC: HO.SH 08:17 | PROVIDERS: Visit Provider Physician Assistant Medical | DX: Z01.118 Encounter for examination of ears and hearing with other abnormal findings (principal); H90.3 Sensorineural hearing loss, bilateral; H93.19 Tinnitus, unspecified ear | CPT/HCPCS: 92552; 92556; 92567 ==

== ENCOUNTER 2022-09-28 13:53 | Outpatient (AMB) | payer OTHER, SELFPAY ==
--- NOTE | 2022-09-28 14:57 | AM.OFFVISNUR ---
Intake Intake Visit Reasons: EKG Planning Manager Required: No Accompanied by: Self / Same As Patient Allergies No Known Allergies Allergy (Verified 09/28/22 14:57) Nursing Note Patient seen in office for today for EKG. Pt reported fluctuating heart rates detected by his smart watch ranging from 40-120BPM. He c/o dizziness, fatigie and chest discomfort. EKG shows sinus bradycardia with heart rate of 52BPM. EKG reviewed by Dr. Aggarwal. Will order a 7 day holter. Patient aware and understands. Office Procedures EKG [id number], Complete Coding Diagnoses CPT Codes EKG - CPT: 58469-[id number], Complete ([id number])
== END 2022-09-28 14:56 | disposition home or self-care (01) ==
PROVIDERS: PCP Physician Assistant Medical; Visit Provider Internal Medicine
DX: R00.1 Bradycardia, unspecified (principal); R94.31 Abnormal electrocardiogram [ECG] [EKG]
CPT/HCPCS: 93010; 93244

== ENCOUNTER → 2022-09-28 13:53 | Outpatient (BNVA) | payer OTHER, SELFPAY | PROVIDERS: PCP Physician Assistant Medical; Visit Provider Internal Medicine ==

== ENCOUNTER → 2022-09-28 14:58 | Outpatient (REF) | payer OTHER, SELFPAY ==
--- NOTE | 2022-09-28 15:04 | HM_ITS ---
Conclusion: 1. Patient was monitored for total period of 7 days 2. Baseline was normal sinus rhythm with average heart of 56 beats per minute 3. Frequent sinus bradycardia with 67% of time heart rate below 60 beats per minute with no significant pauses 4. Frequent PVCs with total burden of 1.5% with 1 4 beat radha of nonsustained VT at 121 beats per minute 5. Occasional PACs noted with no significant SVT episodes 6. No patient reported events but marked the counter 1 time which correlated with PVCs MTDD
== END ==
LOC: HO.CARD 14:58
PROVIDERS: Visit Provider Internal Medicine
DX: I44.7 Left bundle-branch block, unspecified (principal); R00.0 Tachycardia, unspecified; R00.1 Bradycardia, unspecified
CPT/HCPCS: 93005; 93242

== ENCOUNTER 2022-10-16 15:14 | Outpatient (AMB) | payer OTHER, SELFPAY ==
--- NOTE | 2022-10-16 15:25 | A.OFFVIS_ITS ---
Intake Vital Signs 10/16/22 15:33 Height 5 ft 8 in Weight 208 lb 6 oz BMI 31.7 BP 166/86 H Blood Pressure Location Lt brachial Position Sitting Pulse 64 Intake Visit Reasons: one year post exc. anal condyloma Intake Note: Patient is seen in office for one year follow up visit, following anal condyloma. 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 anal condyloma HPI Details He had undergone excision and fulguration of anal condyloma last September,. He had AIN 1 at that time. I had instructed him to come back within a year so we can repeat his anoscopy and re-examine his anus. He denies any significant complaints at this time. Denies any palpable masses in the anus. He has good bowel movements. He says he feels well overall. [facility] Medical History (Updated 10/16/22 @ 15:32 by Brian Rutherford MD) Anal condyloma Anxiety Essential hypertension Family history of sudden cardiac in son History of condyloma acuminatum Kidney, benign tumor LBBB (left bundle branch block) Sinus bradycardia Surgical History History of total bilateral knee replacement (TKR) Hx of colonoscopy Hx of inguinal hernia surgery Family History Father Myocardial infarction Brother HTN (hypertension) Sister Melanoma Social History Household Members: Spouse Alcohol intake: current Alcohol intake frequency: a few times a week Patient Tobacco Use Status: Never used Tobacco Current occupational status: employed 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 Review of Systems Const Denies chills and Denies fever(s) Card Denies chest pain, Denies dyspnea and Denies dyspnea on exertion Resp Denies cough, Denies dyspnea and Denies dyspnea on exertion GI Denies hematochezia and Denies change in bowel habits Denies hematuria and Denies difficulty urinating Musc Denies back pain and Denies limited range of motion Neuro Denies focal weakness and Denies convulsions Psych Denies depression and Denies mood swings Physical Exam Const General: comfortable and no acute distress Orientation/consciousness: patient oriented x3 Neck Neck: Yes no lymphadenopathy Resp Auscultation: clear to auscultation bilaterally Cardio Rhythm: regular rhythm GI Other: Small external hemorrhoids, anoscopy as described Palpation (GI): Soft to palpation, nontender and no guarding Neuro General: patient oriented x3 Office Procedures Anoscopy He was in romain-knife position. The anoscope was gently inserted. A full exami nation of the anal canal was done. There were no lesions seen. There was no fissure or any ulceration. There was no induration on digital exam. There was no bleeding. [id number] Assessment & Plan Assessment & Plan (1) History of condyloma acuminatum: Code(s): Z86.19 - Personal history of other infectious and parasitic diseases Plan: Anoscopy and physical exam do not reveal any recurrent lesions. There was no abnormal mucosa in the anal canal. There was no condylomatous lesion. He does have some small hemorrhoids, internal external . I will see him again next year to repeat his anoscopy. I can see him again in a year so we can do another anoscopic exam. He is doing well overall. Coding Level of Care Code Est Pt Level 3 (80341) Diagnoses History of condyloma acuminatum Z86.19 CPT Codes Details - CPT: [id number] ([id number])
[2022-10-16 15:33] VITALS: BP 166/86; PULSE 64; BMI 31.7
== END 2022-10-16 15:46 | disposition home or self-care (01) ==
PROVIDERS: PCP Physician Assistant Medical; Visit Provider Surgery
DX: Z86.004 Personal history of in-situ neoplasm of other and unspecified digestive organs (principal)
CPT/HCPCS: 46600; 99213

== ENCOUNTER → 2022-10-16 15:14 | Outpatient (BNVA) | payer OTHER, SELFPAY | PROVIDERS: PCP Physician Assistant Medical; Visit Provider Surgery | DX: Z86.19 Personal history of other infectious and parasitic diseases (principal) | CPT/HCPCS: 46600 ==

== ENCOUNTER 2022-11-13 07:24 | Outpatient (REF) | payer OTHER, SELFPAY ==
--- NOTE | ~2022-11-13 | CT_ITS ---
EXAMINATION: CT ABDOMEN WITHOUT AND WITH CONTRAST CLINICAL INFORMATION: Renal cyst follow-up. COMPARISON: Renal ultrasound 09/07/2021, CT abdomen and pelvis 08/16/2020. TECHNIQUE: Contiguous axial thin section helical images of the abdomen were performed before and after the administration of 85 mL of Omnipaque 350 intravenous contrast. The data set was reformatted in the coronal and sagittal planes and reviewed on an independent workstation. This CT examination was performed using dose optimization techniques as appropriate, variously including the following: *Automated exposure control *Adjustment of mA and/or kV according to patient size (this includes techniques or standardized protocols for targeted exams where dose is matched to indication/reason for exam; i.e. extremities or head) *Use of iterative reconstruction technique DLP: 470 mGy-cm FINDINGS: LUNG BASES: No suspicious lung nodules. Calcified granuloma in the right lower lobe. No follow-up imaging recommended as per Fleischner Society guidelines. LIVER, GALLBLADDER, AND BILIARY TREE: The liver is normal in size, attenuation, and contour. No discrete liver mass or ductal dilatation. The gallbladder appears normal with no radiopaque calculi. No biliary ductal dilatation. PANCREAS: No discrete pancreatic mass or ductal dilatation. SPLEEN: The spleen appears normal. ADRENAL GLANDS AND KIDNEYS: No adrenal mass. The kidneys have symmetric nephrograms. No nephrolithiasis. 4.6 x 3.6 cm probable parapelvic cyst rather than dilated renal pelvis. Bosniak 1. 2.3 x 2.0 cm Bosniak 1 lower pole cyst. Suspect a parapelvic cyst has caused mild dilatation of the lower pole calyx which accounts for the suspected complex cyst on the prior ultrasound with the papilla being the possible soft tissue component. This structure measures 1.0 cm which is unchanged compared to CT 03/18/2020. No nephrolithiasis BOWEL LOOPS: Small bowel is normal in caliber. No mesenteric mass or fluid. Colonic diverticulosis without evidence of diverticulitis. LYMPH NODES: No lymphadenopathy. VASCULAR: No aortic aneurysm. Mild aortic atherosclerosis. BONES: Degenerative changes in the spine. CT/CT abdomen wo/w IV con IMPRESSION: It is unclear whether the possible complex Bosniak 2F cyst in the right kidney is truly a Bosniak 2F cyst versus a dilated calyx with the papilla appearing as a mural nodule. This structure is unchanged in size compared to 03/18/2020. Recommend keeping this categorized as Bosniak 2F for now with continued yearly follow-up. At the next follow-up in 1 year, recommend CT urogram which will help differentiate between these two possible entities. Additionally, CT urogram will help differentiate between a large parapelvic cyst versus a dilated renal pelvis (the former is suspected). Clonic diverticulosis without evidence of diverticulitis. Fleischner guidelines were followed.
[2022-11-13 07:47] LABS: Blood Urea Nitrogen 16 mg/dL (9-16); Estimated Glomerular Filt Rate > 60
[2022-11-13] MEDS: iohexoL 350 MG/ML 100 ML INFUS..BTL IV (09:16)
== END 2022-11-13 07:25 | disposition home or self-care (01) ==
LOC: HO.CT 07:24
PROVIDERS: Absent Provider Urology; PCP Physician Assistant Medical; Visit Provider Urology
DX: N28.1 Cyst of kidney, acquired (principal)
CPT/HCPCS: 36415; 74170; 82565; 84520; Q9967

== ENCOUNTER 2022-11-29 08:18 | Outpatient (REF) | payer OTHER, SELFPAY ==
[2022-11-29 09:49] LABS: Anion Gap 12 (12-20); Blood Urea Nitrogen 17 mg/dL (9-16); Calcium 9.6 mg/dL (8.4-10.2); Carbon Dioxide 24 mmol/L (22-29); Chloride 107 mmol/L (96-108); Estimated Glomerular Filt Rate > 60; Glucose Random 123 mg/dL (60-115); Potassium 4.3 mmol/L (3.3-5.1); Sodium 139 mmol/L (135-145)
== END 2022-11-29 08:19 | disposition home or self-care (01) ==
LOC: HO.LAB 08:18
PROVIDERS: PCP Physician Assistant Medical; Visit Provider Internal Medicine
DX: R00.1 Bradycardia, unspecified (principal); I44.7 Left bundle-branch block, unspecified
CPT/HCPCS: 36415; 80048

== ENCOUNTER 2023-02-16 07:31 | Outpatient (REF) | payer OTHER, SELFPAY ==
[2023-02-16 09:31] LABS: Alanine Aminotransferase 22 U/L (0-40); Albumin Level 4.2 g/dL (3.5-5.0); Alkaline Phosphatase 56 U/L (39-117); Aspartate Amino Transferase 22 U/L (5-37); Bilirubin Direct 0.4 mg/dL (0.0-0.5); Cholesterol 147 mg/dL (<200); HDL Cholesterol 44 mg/dL (>40); LDL Cholesterol Calculated 84 mg/dL (<100); Total Protein 7.2 g/dL (6.5-8.0); Triglycerides 97 mg/dL (<150)
== END 2023-02-16 07:32 | disposition home or self-care (01) ==
LOC: HO.LAB 07:31
PROVIDERS: Visit Provider Physician Assistant Medical
DX: E78.5 Hyperlipidemia, unspecified (principal)
CPT/HCPCS: 36415; 80061; 80076

== ENCOUNTER 2023-02-28 10:09 | Outpatient (REF) | payer SELFPAY | END 2023-02-28 10:10 | disposition home or self-care (01) | LOC: HO.HAP 10:09 | PROVIDERS: Visit Provider Physician Assistant Medical | DX: Z13.89 Encounter for screening for other disorder (principal) ==

== ENCOUNTER 2023-04-09 08:03 | Outpatient (AMB) | payer OTHER, SELFPAY ==
[2023-04-09 08:22] VITALS: BP 130/68; PULSE 61; BMI 32.1
--- NOTE | 2023-04-09 08:22 | A.OFFVIS_ITS ---
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 History of chronic sinus bradycardia and left bundle-branch block. Patient himself does not have any known cardiomyopathy or coronary disease or any other cardiac concerns. There is a family history of sudden cardiac in his son who while he was a teenager and exercising on the treadmill. Unknown etiology, but suspected to be some cardiac arrhythmia. Another son has atrial septal defect that was repaired and doing well. Third son is doing well. Overall, no new complaints. He states he feels fine. [facility] Medical History (Updated 10/16/22 @ 15:32 by Brian Rutherford MD) History of condyloma acuminatum Kidney, benign tumor Anxiety Anal condyloma Sinus bradycardia Essential hypertension Family history of sudden cardiac in son LBBB (left bundle branch block) Surgical History Hx of inguinal hernia surgery Hx of colonoscopy History of total bilateral knee replacement (TKR) Family History Father Myocardial infarction Brother HTN (hypertension) Sister Melanoma Social History Household Members: Spouse Alcohol intake: current Alcohol intake frequency: a few times a week Patient Tobacco Use Status: Never used Tobacco Current occupational status: employed 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 Review of Systems Const Denies weakness ENT Denies dizziness Card Denies chest pain, Denies chest pain with activity, Denies syncope, Denies rapid heart rate, Denies pedal edema, Denies edema, Denies leg edema, Denies lightheadedness, Denies palpitations, Denies dyspnea, Denies dyspnea on exertion and Denies orthopnea Resp Denies cough, Denies dyspnea and Denies dyspnea on exertion GI Denies hematochezia and Denies change in stool character Musc Denies abnormal gait, Denies muscle cramps, Denies muscle weakness, Denies numbness, Denies radiating pain into limb and Denies tingling Neuro Denies abnormal gait, Denies dizziness, Denies syncope, Denies numbness, Denies tingling and Denies weakness Endo Denies palpitations Physical Exam Vital Signs: Last Vital Signs Pulse 61 04/09/23 08:22 BP 130/68 04/09/23 08:22 BMI result Body Mass Index 32.1 Const General: comfortable and no acute distress Orientation/consciousness: patient oriented x3 HEENT Other: Unremarkable Head: Yes normal to inspection Neck Neck: Yes normal visual inspection Chest Chest palpation & inspection: normal inspection of the chest Resp Auscultation: clear to auscultation bilaterally Cardio Palpation: normal PMI Heart sounds: S1 normal heart sound present, S2 normal heart sound present, no gallops, no murmurs and no rubs GI Palpation (GI): Soft to palpation Back/Spine/Pelvis Other: unremarkable Skin General skin exam: no rashes or lesions noted Neuro General: patient oriented x3 Extrem General: Yes normal to inspection Psych Mental Status: mental status grossly normal Assessment & Plan Assessment & Plan (1) Sinus bradycardia: Code(s): R00.1 - Bradycardia, unspecified Plan: No symptoms from this. No specific management. In the most recent Holter, underlying sinus rhythm with an average rate of 56/Min. Frequent sinus bradycardia but nothing profound and no significant heart blocks or long pauses. (2) LBBB (left bundle branch block): Code(s): I44.7 - Left bundle-branch block, unspecified Plan: In the most recent echocardiogram, LVEF 56%. Peak global longitudinal strain within normal limits. In the coronary CTA, minimal stenosis in the proximal/mid LAD; mild stenosis in the 1st diagonal. He has recently been on statins. Weight loss. (3) Essential hypertension: Code(s): I10 - Essential (primary) hypertension Plan: Continue losartan. Stable. (4) Obstructive sleep apnea: Code(s): G47.33 - Obstructive sleep apnea (adult) (pediatric) Plan: Continue CPAP. Orders: Orders CA echo transthoracic complete 51 Weeks I44.7 - Left bundle-branch block, unspecified Coding Level of Care Code Est Pt Level 4 (34748) Diagnoses Sinus bradycardia R00.1 LBBB (left bundle branch block) I44.7 Essential hypertension I10 Obstructive sleep apnea G47.33
== END 2023-04-09 08:36 | disposition home or self-care (01) ==
PROVIDERS: PCP Physician Assistant Medical; Visit Provider Internal Medicine
DX: R00.1 Bradycardia, unspecified (principal); I44.7 Left bundle-branch block, unspecified; I10 Essential (primary) hypertension; G47.33 Obstructive sleep apnea (adult) (pediatric)
CPT/HCPCS: 99214

== ENCOUNTER → 2023-04-09 08:03 | Outpatient (BNVA) | payer OTHER, SELFPAY | PROVIDERS: PCP Physician Assistant Medical; Visit Provider Internal Medicine ==

== ENCOUNTER 2023-07-20 07:32 | Outpatient (REF) | payer OTHER, SELFPAY ==
[2023-07-20 07:46] LABS: MANUAL DIFF FLAG NO
[2023-07-20 08:48] LABS: Basophils Percent Auto 0.4 % (0-2); Eosinophils Absolute Auto 0.1 X10*3/uL (0.0-0.4); Eosinophils Percent Auto 0.9 % (0-4); Hematocrit 44.5 % (42.0-52.0); Hemoglobin 14.6 g/dl (14.0-18.0); Imm Gran Abs Auto 0.02 X10*3/uL (0.00-0.03); Imm Gran Pct Auto 0.4 % (0.0-0.4); Lymphocytes Absolute Auto 1.7 X10*3/uL (1.2-4.9); Mean Corpuscular HGB Conc 32.8 g/dl (31.0-36.0); Mean Corpuscular Hemoglobin 31.9 pg (27.0-33.0); Mean Corpuscular Volume 97.2 fL (80.0-98.0); Mean Platelet Volume 11.2 fL (9.4-12.4); Monocytes Absolute Auto 0.4 X10*3/uL (0.1-1.2); Monocytes Percent Auto 7.7 % (2-11); Neutrophils Absolute Auto 3.2 x10*3/uL (2.0-8.3); Neutrophils Percent Auto 59.6 % (45-73); Platelet Count 122 X10*3/uL (160-400); Red Blood Count 4.58 X10*6/uL (4.60-5.80); Red Cell Distribution Width 14.5 % (11.0-16.0); White Blood Count 5.4 X10*3/uL (4.8-10.8)
[2023-07-20 08:52] LABS: Appearance Urine Clear; Color Urine Dark Yellow; Glucose Urine UA Negative (Negative); Leukocyte Esterase Urine Trace (Negative); Nitrite Urine Negative (Negative); PH 6.5 (5.0-9.0); Specific Gravity - Urine >= 1.030 (1.005-1.025); UMIC TRIGGER UA YES; Urine Blood Negative (Negative); Urine Ketones Negative (Negative); Urine Protein 30 (1+) mg/dL (Neg-Trace)
[2023-07-20 09:00] LABS: Bacteria Urine None Seen (None Seen); Hyaline Casts Urine 0-2 /LPF (0-2); RBC Urine 0-2 /HPF (0-2); Squamous Epithelial Cell Urine 0-2 /HPF (0-2)
[2023-07-20 09:25] LABS: Alanine Aminotransferase 22 U/L (0-40); Anion Gap 12 (12-20); Aspartate Amino Transferase 23 U/L (5-37); Blood Urea Nitrogen 23 mg/dL (9-16); Calcium 9.5 mg/dL (8.4-10.2); Carbon Dioxide 25 mmol/L (22-29); Chloride 109 mmol/L (96-108); Cholesterol 142 mg/dL (<200); Estimated Glomerular Filt Rate > 60; Glucose Random 93 mg/dL (60-115); HDL Cholesterol 44 mg/dL (>40); LDL Cholesterol Calculated 80 mg/dL (<100); Potassium 4.7 mmol/L (3.3-5.1); Sodium 141 mmol/L (135-145); Triglycerides 91 mg/dL (<150)
[2023-07-20 09:26] LABS: Erythrocyte Sedimentation Rate 2 MM/HR (0-15)
[2023-07-20 09:30] LABS: Rheumatoid Factor 15.4 IU/mL (<15.0)
[2023-07-20 09:32] LABS: Prostate Specific Antigen 0.77 ng/mL (<0.05-4.0)
== END 2023-07-20 07:33 | disposition home or self-care (01) ==
LOC: HO.LAB 07:32
PROVIDERS: PCP Physician Assistant Medical; Visit Provider Physician Assistant Medical
DX: Z12.5 Encounter for screening for malignant neoplasm of prostate (principal); I10 Essential (primary) hypertension; J30.9 Allergic rhinitis, unspecified; Z86.010 Personal history of colon polyps
CPT/HCPCS: 36415; 80048; 80061; 81001; 84153; 84450; 84460; 85025; 85652; 86431

== ENCOUNTER 2023-10-10 08:52 | Outpatient (AMB) | payer OTHER, SELFPAY ==
[2023-10-10 08:54] VITALS: BMI 31.5
--- NOTE | 2023-10-10 08:54 | MHC.OFFVIS ---
Vital Signs 10/10/23 08:54 Height 5 ft 8 in Weight 207 lb BMI 31.5 Intake Visit Reasons: post exc. anal condyloma, 1 year follow up Intake Note: This patient presents for anal condyloma, 1 year follow up. Pt c/o; reports no complaints. Bi Technical Lead Required: No Accompanied by: Self / Same As Patient Allergies No Known Allergies Allergy (Verified 10/10/23 08:59) Medication List - Last Reconciled 10/10/23 by Brian Rutherford MD acetaminophen 500 mg PO BID PRN atorvastatin 10 mg PO BEDTIME azelastine 2 sprays intranasal BID losartan 25 mg PO DAILY sertraline 50 mg PO DAILY HPI HPI post exc. 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 He denies any new complaints. He does have hemorrhoids and occasional discomfort with this. He denies any changes with regards to his overall health. [facility] Medical History History of condyloma acuminatum Kidney, benign tumor Anxiety Anal condyloma Sinus bradycardia Essential hypertension Family history of sudden cardiac in son LBBB (left bundle branch block) Surgical History Hx of inguinal hernia surgery Hx of colonoscopy History of total bilateral knee replacement (TKR) Family History Father Myocardial infarction Brother HTN (hypertension) Sister Melanoma Social History Household Members: Spouse Alcohol intake: current Alcohol intake frequency: a few times a week Patient Tobacco Use Status: Never used Tobacco Current occupational status: employed 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 Review of Systems Const Denies chills and Denies fever(s) Card Denies chest pain, Denies dyspnea and Denies dyspnea on exertion Resp Denies cough, Denies dyspnea and Denies dyspnea on exertion GI Denies hematochezia and Denies change in bowel habits Denies hematuria and Denies difficulty urinating Musc Denies back pain and Denies limited range of motion Neuro Denies focal weakness and Denies convulsions Psych Denies depression and Denies mood swings Physical Exam Vital Signs: BMI result Body Mass Index 31.5 Const General: comfortable and no acute distress Orientation/consciousness: patient oriented x3 Neck Neck: Yes no lymphadenopathy Resp Auscultation: clear to auscultation bilaterally Cardio Rhythm: regular rhythm GI Other: Rectal exam - external hemorrhoids on both left and right side with no obvious lesion on skin Palpation (GI): Soft to palpation, nontender and no guarding Neuro General: patient oriented x3 Office Procedures Anoscopy He was in romain-knife position. The anoscope was gently inserted. A full examination of the anal canal was done. He did have a mix of internal external hemorrhoids on both the left and right side. There was no lesion, there was no condyloma was seen, there was no bleeding or induration. 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 Current exam does not reveal any new lesions or any new condyloma I told him that I would see him again next year for a repeat anoscopy. He does understand that he is welcome to come back to the office earlier than that if he notices any changes. Coding Level of Care Code Est Pt Level 3 (55205) Diagnoses History of condyloma acuminatum Z86.19 CPT Codes Details - CPT: 96877-[id number] ([id number])
== END 2023-10-10 09:19 | disposition home or self-care (01) ==
PROVIDERS: PCP Physician Assistant Medical; Visit Provider Surgery
DX: K64.8 Other hemorrhoids (principal); Z86.19 Personal history of other infectious and parasitic diseases
CPT/HCPCS: 46600; 99213

== ENCOUNTER → 2023-10-10 08:52 | Outpatient (BNVA) | payer OTHER, SELFPAY | PROVIDERS: PCP Physician Assistant Medical; Visit Provider Surgery | DX: Z86.19 Personal history of other infectious and parasitic diseases (principal); K64.8 Other hemorrhoids; K64.4 Residual hemorrhoidal skin tags | CPT/HCPCS: 46600 ==

== ENCOUNTER 2024-03-05 14:23 | Outpatient (REF) | payer SELFPAY ==
--- NOTE | 2024-03-05 16:40 | MHC.AU.HA3 ---
Hearing Instrument Follow-Up- Binaural Date of Visit: 03/05/24 Right Ear: Make, Model, Color, Serial Number: Saw Nguyen [id number] [place] [id number] Field Marketing Manager Repair Warranty: 04/11/2024 Field Marketing Manager Loss and Damage Warranty: 04/11/2024 [facility] Service Plan: employee Battery Size: 13 Embosser Operator/Slim Tube: Size 1 M Earmold/Dome/CShell/SlimTip:sm open w/ tail Type of Wax Guard: Cerushield Dispensed By: [facility] Date of Fittin01/25/21 Follow-Up Summary: Right aid dropped off to go out for end of warranty check. Pt noted he used to have a tail on the aid and misses it. Be sure to put tail on when aid gets back. Recommendations: Recommendations: Patient will be contacted when materials have arrived. Diagnosis Code(s): Primary Diagnosis: H90.3 Bilateral Sensorineural Hearing Loss Signature: Provider: Coco Jimenez, [facility]
== END 2024-03-05 14:24 | disposition home or self-care (01) ==
LOC: HO.HAP 14:23
PROVIDERS: Visit Provider Physician Assistant Medical
DX: Z13.89 Encounter for screening for other disorder (principal)

== ENCOUNTER 2024-03-18 10:21 | Outpatient (REF) | payer OTHER, SELFPAY | END 2024-03-18 10:22 | disposition home or self-care (01) | LOC: HO.HAP 10:21 | PROVIDERS: Visit Provider Physician Assistant Medical | DX: Z13.89 Encounter for screening for other disorder (principal) ==

== ENCOUNTER 2024-03-26 11:02 | Outpatient (REF) | payer OTHER, SELFPAY ==
[2024-03-26 12:39] LABS: Blood Urea Nitrogen 17 mg/dL (9-16); Estimated Glomerular Filt Rate > 60
--- OUTSIDE RECORDS SUMMARY | 2024-03-26 13:21 | XMS_ITS | Patient Health Record ---
Author Organization [facility] Address [address] [place] [address] Care Team Providers Care Shrink Pit Supervisor Name Role Phone MANUELERNESTINA LESLIE Primary Care Provider Unavail able Daniel Alfredo Jr Unavailable ALLERGIES Allergen (clinical drug ingredient) Drug/Non Drug Allergy documented on EMR Reaction Allergy Type Onset Date Status seasonal (uncoded) Unknown Allergy A ctive REASON FOR REFERRAL No Information MEDICATIONS Medication SIG (Take, Route, Frequency, Duration) Notes Start Date End Date Status Losartan Potassium 25 MG 1 tablet Orally Once a day for 30 day(s) Active Flonase 50 MCG/ACT 1 spray in each nost ril Nasally Once a day Active ZyrTEC Allergy 10 MG 1 tablet Orally prn Active Sertraline HCl 50 MG 1 tablet Orally Once a day Active Ibuprofen 200 MG 1 tablet as needed O rally prn Active MiraLax (colon prep) 17 GM/SCOOP mixed with Gatorade or Crystal Light Orally begin at 5:00 p.m. the day before the procedure for 1 day 07/11/2021 Active IMMUNIZATIONS Vaccine Route Administration Date Status Comme nts Influenza Unknown 12/14/2020 Administered SOCIAL HISTORY Sex Assigned At : Social History Observation Description Sex Assigned At Unknown PROBLEMS Problem Type ICD Code Onset Dates Problem Status W/U Status Risk SNOMED Code Notes Problem Colon cancer screening (Z12.11) Active confirmed 455866961 Problem Diverticulosis of large intestine without hemorrhage (K57.30) Active confirmed 831850761 Problem Encounter for other preprocedural examination (Z01.818) Active confirmed 554423552 Problem NSAID long-term use (Z79.1) Active confirmed 376410331 PLAN OF TREATMENT Future Test Test Name Order Date COLONOSCOPY 07/22/2015 COLONOSCOPY 07/11/2021 Insurance Providers Payer Name Payer Address Payer Phone Subscriber Number Group Number Insured Name Patient Relationship to Insured Coverage Start Date Coverage End Date [employer] [address] [address] [place] [address] [id number] NATHAN SALAS Self - patient is the insured MEDICAL (GENERAL) HISTORY Medical History History ICD Code left bundle-branch block hypertension Surgical History Surgery Date(Month/Year) hernia repair 1976 knee replacements x 2
== END 2024-03-26 11:03 | disposition home or self-care (01) ==
LOC: HO.LAB 11:02
PROVIDERS: Visit Provider Physician Assistant Surgical
DX: N28.1 Cyst of kidney, acquired (principal)
CPT/HCPCS: 36415; 82565; 84520

== ENCOUNTER → 2024-03-31 07:38 | Outpatient (BNV) | payer OTHER, SELFPAY | PROVIDERS: PCP Physician Assistant Medical; Visit Provider Internal Medicine | DX: I44.7 Left bundle-branch block, unspecified (principal) | CPT/HCPCS: 93306 ==

== ENCOUNTER 2024-04-09 08:26 | Outpatient (REF) | payer OTHER, SELFPAY ==
--- NOTE | ~2024-04-09 | CT_ITS ---
CLINICAL HISTORY: CYST OF KIDNEY CT abdomen and pelvis with and without contrast Comparison: CT/SR - CT ABDOMEN WO/W IV CON - 11/13/22 08:[address] - CT ABDOMEN PELVIS WO CON - 03/18/20 14:51 EST Findings: No consolidation or effusion. The gallbladder and solid organs are within normal limits. No renal stones. Stable peripelvic cyst of the right kidney 4 x 4.7 cm series 8, image 30, previously 3.7 x 4.4 cm. Stable additional smaller cyst of the right kidney. No septation or mural nodule noted in the cystic lesions. No bowel obstruction, pneumoperitoneum, or pneumatosis. Colonic diverticulosis. Prostate gland is enlarged with calcification. Normal appendix. Degenerative changes of the lumbar spine. IMPRESSION: Stable right renal cysts. Ultrasound follow-up as indicated. Colonic diverticulosis with no evidence of acute diverticulitis. This document has been electronically signed by: Johnna Dykes MD on 04/09/2024 15:13:06
--- OUTSIDE RECORDS SUMMARY | 2024-04-09 09:04 | XMS_ITS | Patient Health Record ---
Author Organization [facility] Address [address] [place] [address] Care Team Providers Care Supervisor Warping Department Name Role Phone MANUELERNESTINA LESLIE Primary Care Provider Unavail able Daniel Alfredo Jr Unavailable [phone] ALLERGIES Allergen (clinical drug ingredient) Drug/Non Drug [...] Problem Colon cancer screening (Z12.11) Active confirmed 636571272 Problem Diverticulosis of large intestine without hemorrhage (K57.30) Active confirmed 862271041 Problem Encounter for other preprocedural examination (Z01.818) Active confirmed 854247505 Problem NSAID long-term use (Z79.1) Active confirmed 699862109 PLAN OF TREATMENT Future Test Test Name Order Date COLONOSCOPY 07/22/2015 COLONOSCOPY 07/11/2021 Insurance Providers Payer Name Payer Address Payer Phone Subscriber Number Group Number Insured Name Patient Relationship to Insured Coverage Start Date Coverage End Date [employer] [address] [address] [place] [address] [id number] NATHAN SALAS Self - patient is the insured MEDICAL (GENERAL) HISTORY Medical History History ICD Code left bundle-branch block hypertension Surgical History Surgery Date(Month/Year) hernia repair 1976 knee replacements x 2
[2024-04-09] MEDS: iohexoL 350 MG/ML 100 ML INFUS..BTL IV (09:21)
== END 2024-04-09 08:27 | disposition home or self-care (01) ==
LOC: HO.CT 08:26
PROVIDERS: PCP Physician Assistant Medical; Visit Provider Physician Assistant Surgical
DX: N28.1 Cyst of kidney, acquired (principal)
CPT/HCPCS: 74178; Q9967

== ENCOUNTER → 2024-04-09 08:28 | Outpatient (BNV) | payer OTHER, SELFPAY | PROVIDERS: PCP Physician Assistant Medical; Visit Provider Nuclear Medicine | DX: N28.1 Cyst of kidney, acquired (principal); K57.30 Diverticulosis of large intestine without perforation or abscess without bleeding | CPT/HCPCS: 74178 ==

== ENCOUNTER 2024-04-30 12:41 | Outpatient (AMB) | payer OTHER, SELFPAY ==
[2024-04-30 12:47] VITALS: BP 126/68; PULSE 56; BMI 32.2
--- NOTE | 2024-04-30 12:47 | A.OFFVIS_ITS ---
Vital Signs 04/30/24 12:47 Height 5 ft 8 in Weight 211 lb 10.3 oz BMI 32.2 BP 126/68 Blood Pressure Location Lt brachial Position Sitting Pulse 56 Pulse Source Monitor Intake Visit Reasons: r/s 04/09/24 1 yr followup w/ekg s/p echo Allergies No Known Allergies Allergy (Verified 10/10/23 08:59) Medication List - Last Reconciled 04/30/24 by Kristian Aggarwal MD acetaminophen 500 mg PO BID PRN atorvastatin 10 mg PO BEDTIME azelastine 2 sprays intranasal BID losartan 25 mg PO DAILY sertraline 50 mg PO DAILY HPI Comments Details: Jensen returns for follow-up. History of chronic sinus bradycardia and left bundle-branch block. Patient himself does not have any known cardiomyopathy or coronary disease or any other cardiac concerns. There is a family history of sudden cardiac in his son who while he was a teenager and exercising on the treadmill. Unknown etiology, but suspected to be some cardiac arrhythmia. Another son has atrial septal defect that was repaired and doing well. Third son is doing well. Since last seen, he states he is feeling good. No cardiac complaints whatsoever. [facility] Medical History History of condyloma acuminatum Kidney, benign tumor Anxiety Anal condyloma Sinus bradycardia Essential hypertension Family history of sudden cardiac in son LBBB (left bundle branch block) Surgical History Hx of inguinal hernia surgery Hx of colonoscopy History of total bilateral knee replacement (TKR) Family History Father Myocardial infarction Brother HTN (hypertension) Sister Melanoma Social History Household Members: Spouse Alcohol intake: current Alcohol intake frequency: a few times a week Patient Tobacco Use Status: Never used Tobacco Current occupational status: employed 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 Review of Systems Const Denies weakness ENT Denies dizziness Card Denies chest pain, Denies chest pain with activity, Denies syncope, Denies rapid heart rate, Denies pedal edema, Denies edema, Denies leg edema, Denies lightheadedness, Denies palpitations, Denies dyspnea, Denies dyspnea on exertion and Denies orthopnea Resp Denies cough, Denies dyspnea and Denies dyspnea on exertion GI Denies hematochezia and Denies change in stool character Musc Denies abnormal gait, Denies muscle cramps, Denies muscle weakness, Denies numbness, Denies radiating pain into limb and Denies tingling Neuro Denies abnormal gait, Denies dizziness, Denies syncope, Denies numbness, Denies tingling and Denies weakness Endo Denies palpitations Physical Exam Vital Signs: Last Vital Signs Pulse 56 04/30/24 12:47 BP 126/68 04/30/24 12:47 BMI result Body Mass Index 32.2 Const General: comfortable and no acute distress Orientation/consciousness: patient oriented x3 HEENT Other: Unremarkable Head: Yes normal to inspection Neck Neck: Yes normal visual inspection Chest Chest palpation & inspection: normal inspection of the chest Resp Auscultation: clear to auscultation bilaterally Cardio Palpation: normal PMI Heart sounds: S1 normal heart sound present, S2 normal heart sound present, no gallops, no murmurs and no rubs GI Palpation (GI): Soft to palpation Back/Spine/Pelvis Other: unremarkable Skin General skin exam: no rashes or lesions noted Neuro General: patient oriented x3 Extrem General: Yes normal to inspection Psych Mental Status: mental status grossly normal Office Procedures EKG Details: EKG with sinus bradycardia, 56/Min; left bundle-branch block pattern[place]. [address]-Ujsslnwbridlbebpi, Complete Assessment & Plan Assessment & Plan (1) Sinus bradycardia: Code(s): R00.1 - Bradycardia, unspecified Category: Medical Plan: No symptoms from this. No specific management. In the last Holter, underlying sinus rhythm with an average rate of 56/Min. Frequent sinus bradycardia but nothing profound and no significant heart blocks or long pauses. (2) LBBB (left bundle branch block): Code(s): I44.7 - Left bundle-branch block, unspecified Category: Medical Plan: In the recent echocardiogram, LVEF 46%. [place] to be lower than prior study, but upon comparison of images, no major difference. In the coronary CTA, minimal stenosis in the proximal/mid LAD; mild stenosis in the 1st diagonal. He is on statins. (3) Essential hypertension: Code(s): I10 - Essential (primary) hypertension Category: Medical Plan: Continue Losartan. Stable. (4) Obstructive sleep apnea: Code(s): G47.33 - Obstructive sleep apnea (adult) (pediatric) Category: Medical Plan: CPAP. Orders: Orders CA echo transthoracic complete 1 Year I44.7 - Left bundle-branch block, unspecified ECG 3 day holter monitor 1 Year I44.7 - Left bundle-branch block, unspecified, R00.2 - Palpitations Coding Level of Care Code Est Pt Level 4 (41820) Complex EM visit Add On G2211 Diagnoses Sinus bradycardia R00.1 LBBB (left bundle branch block) I44.7 Essential hypertension I10 Obstructive sleep apnea G47.33 CPT Codes EKG - CPT: 49155-Ockshigydrdecybgc, Complete ([id number])
== END 2024-04-30 13:08 | disposition home or self-care (01) ==
PROVIDERS: PCP Physician Assistant Medical; Visit Provider Internal Medicine
DX: R00.1 Bradycardia, unspecified (principal); I44.7 Left bundle-branch block, unspecified; I10 Essential (primary) hypertension; G47.33 Obstructive sleep apnea (adult) (pediatric)
CPT/HCPCS: 93010; 99214

== ENCOUNTER → 2024-04-30 12:41 | Outpatient (BNVA) | payer OTHER, SELFPAY | PROVIDERS: PCP Physician Assistant Medical; Visit Provider Internal Medicine | DX: R00.1 Bradycardia, unspecified (principal); I44.7 Left bundle-branch block, unspecified; I10 Essential (primary) hypertension; G47.33 Obstructive sleep apnea (adult) (pediatric); Z79.899 Other long term (current) drug therapy | CPT/HCPCS: 93005 ==

== ENCOUNTER 2024-05-08 07:49 | Outpatient (REF) | payer OTHER, SELFPAY ==
--- NOTE | ~2024-05-08 | XR_ITS ---
EXAMINATION: XR FOOT, LEFT CLINICAL INFORMATION: LEFT HEEL PAIN COMPARISON: None available. TECHNIQUE: AP, lateral, and oblique views of the left foot. FINDINGS: No fracture, dislocation, or suspicious bone lesion. Normal bone mineralization. Normal alignment. Joint spaces are preserved. No significant arthropathy. Normal plantar arch. Normal midfoot and hindfoot. Soft tissues appear normal. XR/XR foot LT min 3V IMPRESSION: Normal left foot. Electronically signed by: Glen Cedillo MD 05/08/2024 09:42 AM EDT
--- OUTSIDE RECORDS SUMMARY | 2024-05-08 07:54 | XMS_ITS | Patient Health Record ---
Author Organization [facility] Address [address] [place] [address] Care Team Providers Care Letterset Press Set Up Operator Name Role Phone MANUELSANTIAGOoJhnCAMPLESLIE Primary Care Provider Unavail able Daniel Alfredo Jr Unavailable [phone] Allergies Allergen (clinical drug ingredient) Drug/Non Drug Allergy documented on EMR Reaction Allergy Type Onset Date Status seasonal (uncoded) Unknown Allergy A ctive Reason For Referral No Information Medications Medication SIG (Take, Route, Frequency, Duration) Notes [...] the procedure for 1 day 07/11/2021 Active Immunizations Vaccine Route Administration Date Status Comme nts Influenza Unknown 12/14/2020 Administered Problems Problem Type SNOMED Code ICD Code Onset Dates Problem Status W/U Status Risk Notes Problem 823952404 Colon cancer screening (Z12.11) Active confirmed Problem 362330965 Encounter for ot her preprocedural examination (Z01.818) Active confirmed Problem 016281918 Diverticulosis o f large intestine without hemorrhage (K57.30) Active confirmed Problem 444783957 NSAID long-term use (Z79.1) Active confirmed Plan Of Treatment Future Test Test Name Order Date COLONOSCOPY 07/22/2015 COLONOSCOPY 07/11/2021 Insurance Providers Payer Name Payer Address Payer Phone Subscriber Number Group Number Insured Name Patient Relationship to Insured Coverage Start Date Coverage End Date [employer] [address] [address] [place] [address] [id number] NATHAN SALAS Self - patient is the insured Medical (General) History Medical History History ICD Code left bundle-branch block hypertension Surgical History Surgery Date(Month/Year) hernia repair 1976 knee replacements x 2
[2024-05-08 08:43] LABS: Estimated Average Glucose 120 mg/dL; Hemoglobin A1c % 5.8 % (<6.0)
[2024-05-08 09:27] LABS: Prostate Specific Antigen 1.13 ng/mL (<0.05-4.0)
[2024-05-08 09:28] LABS: Free T4 (Free Thyroxine) 0.83 ng/dL (0.71-1.85)
[2024-05-08 09:30] LABS: ~HepC Num1 0.08 S/CO (0.00-0.79); ~Hepatitis C Antibody Nonreactive (Nonreactive)
[2024-05-11 18:27] LABS: HIV RNA PCR Qn Copies Not Detected Copies/mL; HIV RNA PCR Qn Log Copies Not Detected Log cps/mL
== END 2024-05-08 07:50 | disposition home or self-care (01) ==
LOC: HO.XRAY 07:49
PROVIDERS: Visit Provider Physician Assistant Medical
DX: M79.672 Pain in left foot (principal); Z00.00 Encounter for general adult medical examination without abnormal findings; E11.9 Type 2 diabetes mellitus without complications; E78.5 Hyperlipidemia, unspecified; I11.0 Hypertensive heart disease with heart failure; I50.9 Heart failure, unspecified; B20 Human immunodeficiency virus [HIV] disease; B18.2 Chronic viral hepatitis C; Z11.4 Encounter for screening for human immunodeficiency virus [HIV]; Z71.7 Human immunodeficiency virus [HIV] counseling; Z12.5 Encounter for screening for malignant neoplasm of prostate
CPT/HCPCS: 36415; 73630; 83036; 84153; 84439; 84443; 86803; 87536; 87900

== ENCOUNTER → 2024-05-08 08:10 | Outpatient (BNV) | payer OTHER, SELFPAY | PROVIDERS: Visit Provider Radiology Diagnostic Radiology | DX: M79.672 Pain in left foot (principal) | CPT/HCPCS: 73630 ==

== ENCOUNTER 2024-10-02 09:48 | Outpatient (REF) | payer OTHER, SELFPAY ==
--- NOTE | ~2024-10-02 | US_ITS ---
CLINICAL HISTORY: CYST OF KIDNEY US retroperitoneum Comparison: CT/SR - CT ABDOMEN PELVIS WO/W IV CON - 04/09/24 08:42 EST Findings: Right kidney normal size and echotexture, 11.3 cm length. No calculus or hydronephrosis. Lobulated benign avascular cyst 5.2 x 4.7 x 5.2 cm in the mid to lower pole. Normal color flow. Left kidney normal size and echotexture, 11.4 cm in length. No hydronephrosis, mass or calculus. Normal color flow. Urinary bladder is unremarkable. Prevoid volume 251 mL. Postvoid volume 45 mL. Ureteral jets are visualized bilaterally Prostate measures 3.8 x 4.4 x 5.3 cm 45.9 mL, coarse central calcification noted. Impression: Right renal benign cyst. This document has been electronically signed by: Erika Acevedo MD on 10/02/2024 14:35:35
--- OUTSIDE RECORDS SUMMARY | 2024-10-02 10:17 | XMS_ITS | Patient Health Record ---
Author Organization [facility] Address [address] [place] [address] Care Team Providers Care Cognos Name Role Phone Jagdeep Lopes Primary Care Provider Daniel Carl Jr Unavailable Allergies Allergen (clinical drug ingredient) Drug/Non Drug [...] Problem Status W/U Status Risk Notes Problem 927247970 Colon cancer screening (Z12.11) Active confirmed Problem 999610897 Encounter for ot her preprocedural examination (Z01.818) Active confirmed Problem 470178757 Diverticulosis o f large intestine without hemorrhage (K57.30) Active confirmed Problem 914470633 NSAID long-term use (Z79.1) Active confirmed Plan Of Treatment Future Test Test Name Order Date COLONOSCOPY 07/22/2015 COLONOSCOPY 07/11/2021 Insurance Providers Payer Name Payer Address Payer Phone Subscriber Number Group Number Insured Name Patient Relationship to Insured Coverage Start Date Coverage End Date [employer] [address] [address] [place] [address] [id number] NATHAN SALAS Self - patient is the insured Medical (General) History Medical History History ICD Code left bundle-branch block hypertension Surgical History Surgery Date(Month/Year) hernia repair 1976 knee replacements x 2
== END 2024-10-02 09:49 | disposition home or self-care (01) ==
LOC: HO.US 09:48
PROVIDERS: Visit Provider Physician Assistant
DX: N28.1 Cyst of kidney, acquired (principal)
CPT/HCPCS: 76770

== ENCOUNTER → 2024-10-02 10:03 | Outpatient (BNV) | payer OTHER, SELFPAY | PROVIDERS: Visit Provider Radiology Diagnostic Radiology | DX: N28.1 Cyst of kidney, acquired (principal) | CPT/HCPCS: 76770 ==

== ENCOUNTER 2024-10-08 08:57 | Outpatient (AMB) | payer OTHER, SELFPAY ==
--- NOTE | 2024-10-08 09:02 | A.OFFVIS_ITS ---
Vital Signs 10/08/24 09:03 Height 5 ft 8 in Weight 211 lb BMI 32.1 BP 134/66 Blood Pressure Location Rt brachial Position Sitting Pulse 57 Intake Visit Reasons: post exc. anal condyloma, 1 year follow up Intake Note: Patient here for yearly anascopy exam. Patient c/o: no concerns. No changes in medical hx since last visit. CHERELLE: 10-10-23 Appeals Specialist Required: No Accompanied by: Self / Same As Patient Allergies No Known Allergies Allergy (Verified 10/08/24 09:02) HPI HPI post exc. anal condyloma, 1 year follow up: Details: 69-year-old male here for follow-up for his history of anal condyloma with AIN 1. He denies any new complaints. He does have hemorrhoids and occasional discomfort with this. He denies any changes with regards to his overall health. He had excision of multiple condylomatous lesions in the anal canal in 2021 and this had shown AIN at that time. He admits to occasional passage of small amounts of blood on wiping with bowel movements. [facility] Medical History Benign essential tremor History of condyloma acuminatum Kidney, benign tumor Anxiety Anal condyloma Sinus bradycardia Essential hypertension Family history of sudden cardiac in son LBBB (left bundle branch block) Surgical History Hx of inguinal hernia surgery Hx of colonoscopy History of total bilateral knee replacement (TKR) Family History Father Myocardial infarction Brother HTN (hypertension) Sister Melanoma Social History Household Members: Spouse Alcohol intake: current Alcohol intake frequency: a few times a week Patient Tobacco Use Status: Never used Tobacco Current occupational status: employed Current occupation: [employer] Review of Systems Const Denies chills and Denies fever(s) Card Denies chest pain, Denies dyspnea and Denies dyspnea on exertion Resp Denies cough, Denies dyspnea and Denies dyspnea on exertion GI Denies hematochezia and Denies change in bowel habits Denies hematuria and Denies difficulty urinating Musc Denies back pain and Denies limited range of motion Neuro Denies focal weakness and Denies convulsions Psych Denies depression and Denies mood swings Physical Exam Const General: comfortable and no acute distress Orientation/consciousness: patient oriented x3 Neck Neck: Yes no lymphadenopathy Resp Auscultation: clear to auscultation bilaterally Cardio Rhythm: regular rhythm GI Other: Small external hemorrhoids Palpation (GI): Soft to palpation, nontender and no guarding Neuro General: patient oriented x3 Office Procedures Anoscopy He was in kneeling romain-knife position. The anoscope was gently inserted. A full examination of the anal canal was done. He had some internal hemorrhoids, prominent. There was note of some small condylomatous lesions on the left side in the anal canal. There was no ulceration. There were no bulky lesions. [id number] Assessment & Plan Assessment & Plan (1) Anal condyloma: Code(s): A63.0 - Anogenital (venereal) warts Category: Medical Plan: Anoscopy shows small, condylomatous lesions in the anal canal on the left side. I explained to him that in view of his history of AIN, it will be best to excise this. I explained the technique of exam under anesthesia and excision of the anal condyloma. I reviewed the risks including but not limited to bleeding, infections and postop pain. I explained to him what to expect postoperatively. He says he understands and wants to proceed. Coding Level of Care Code Est Pt Level 3 (52105) Diagnoses Anal condyloma A63.0 CPT Codes Details - CPT: 47228-[id number] ([id number])
[2024-10-08 09:03] VITALS: BP 134/66; PULSE 57; BMI 32.1
--- OUTSIDE RECORDS SUMMARY | 2024-10-08 09:19 | XMS_ITS | Patient Health Record ---
Author Organization [facility] Address [address] [place] [address] Care Team Providers Care Wound/Ostomy Nurse Name Role Phone Jagdeep Lopes Primary Care [...] Problem Status W/U Status Risk Notes Problem 128927578 Colon cancer screening (Z12.11) Active confirmed Problem 812597550 Encounter for ot her preprocedural examination (Z01.818) Active confirmed Problem 458697158 Diverticulosis o f large intestine without hemorrhage (K57.30) Active confirmed Problem 094313887 NSAID long-term use (Z79.1) Active confirmed Plan Of Treatment Future Test Test Name Order Date COLONOSCOPY 07/22/2015 COLONOSCOPY 07/11/2021 Insurance Providers Payer Name Payer Address Payer Phone Subscriber Number Group Number Insured Name Patient Relationship to Insured Coverage Start Date Coverage End Date [employer] [address] [address] [place] [address] [id number] NATHAN SALAS Self - patient is the insured Medical (General) History Medical History History ICD Code left bundle-branch block hypertension Surgical History Surgery Date(Month/Year) hernia repair 1976 knee replacements x 2
== END 2024-10-08 09:08 | disposition home or self-care (01) ==
LOC: HO.HGS 08:58
PROVIDERS: PCP Physician Assistant Medical; Visit Provider Surgery
DX: A63.0 Anogenital (venereal) warts (principal)
CPT/HCPCS: 46600; 99213

== ENCOUNTER → 2024-10-08 08:57 | Outpatient (BNVA) | payer OTHER, SELFPAY | PROVIDERS: PCP Physician Assistant Medical; Visit Provider Surgery | DX: A63.0 Anogenital (venereal) warts (principal) | CPT/HCPCS: 46600 ==

== ENCOUNTER → 2024-11-04 09:53 | Day surgery (SDC) | payer OTHER, SELFPAY ==
[2024-10-21 08:49] LABS: Hematocrit 43.9 % (42.0-52.0); Hemoglobin 14.2 g/dl (14.0-18.0); Mean Corpuscular HGB Conc 32.3 g/dl (31.0-36.0); Mean Corpuscular Hemoglobin 31.1 pg (27.0-33.0); Mean Corpuscular Volume 96.1 fL (80.0-98.0); NRBC Abs Auto 0.000 X10*3/uL (0.0-0.012); NRBC Pct Auto 0.0 /100WBC (0.0-0.2); Platelet Count 146 X10*3/uL (160-400); Red Blood Count 4.57 X10*6/uL (4.60-5.80); White Blood Count 5.7 X10*3/uL (4.8-10.8)
[2024-10-21 09:23] LABS: Anion Gap 14 (12-20); Blood Urea Nitrogen 21 mg/dL (9-16); Calcium 9.4 mg/dL (8.4-10.2); Carbon Dioxide 24 mmol/L (22-29); Chloride 107 mmol/L (96-108); Estimated Glomerular Filt Rate > 60; Potassium 4.7 mmol/L (3.3-5.1); Sodium 140 mmol/L (135-145)
[2024-10-31 14:24] VITALS: BMI 32.1
--- NOTE | 2024-11-03 08:57 | HO.ANESPROP2 ---
HPI - Anesthesia Eval Consult details Narrative: 69yo M for EUA,Excision of Anal Condyloma Follows [facility] Cardiology for isaias, LBBB, fam hx sudden cardiac in son. Stable at yearly routine visit 04/2024 - testing [place] [facility] Active Problems Active Problems: All Active Problems History of condyloma acuminatum (Acute) Obstructive sleep apnea (Acute) Anal condyloma (Acute) Sinus bradycardia (Acute) Essential hypertension (Acute) Family history of sudden cardiac in son (Acute) LBBB (left bundle branch block) (Acute) Past Medical History Medical History Benign essential tremor History of condyloma acuminatum Kidney, benign tumor Anxiety Anal condyloma Sinus bradycardia Essential hypertension Family history of sudden cardiac in son LBBB (left bundle branch block) Family History Family History Father Myocardial infarction Brother HTN (hypertension) Sister Melanoma Family history of problems with anesthesia: Yes (Ponv in sister ) Surgical History Surgical History Hx of inguinal hernia surgery Hx of colonoscopy History of total bilateral knee replacement (TKR) History of Problems with Anesthesia: No Social History Social History Household Members: Spouse Alcohol intake: current Alcohol intake frequency: a few times a week Patient Tobacco Use Status: Never used Tobacco Current occupational status: employed Current occupation: [employer] Allergies Allergy/AdvReac Type Severity Reaction Status Date / Time No Known Allergies Allergy Verified 10/08/24 09:02 Home Medications ?Medication ?Instructions ?Recorded ?Confirmed ?Last Taken ?Type azelastine 137 mcg (0.1 %) nasal 2 spray intranasal BID 04/01/20 04/30/24 Unknown History spray sertraline 50 mg tablet 50 mg PO DAILY 04/01/20 04/30/24 Unknown History losartan 25 mg tablet 25 mg PO DAILY 06/07/21 04/30/24 09/30/21 History acetaminophen 500 mg capsule 500 mg PO BID PRN 10/16/22 04/30/24 Unknown History atorvastatin 10 mg tablet 10 mg PO BEDTIME 04/09/23 04/30/24 Unknown History Exam Height,Weight and Vital Signs: Height 5 ft 8 in Weight 95.708 kg Pertinent Lab Results Pertinent Lab Results: Laboratory Tests 10/21/24 08:15 WBC 5.7 RBC 4.57 L Hgb 14.2 Hct 43.9 MCV 96.1 MCH 31.1 MCHC 32.3 RDW 14.5 Plt Count 146 L MPV 10.9 Absolute Nucleated RBC 0.000 Nucleated RBC % (auto) 0.0 Sodium 140 Potassium 4.7 Chloride 107 Carbon Dioxide 24 Anion Gap 14 BUN 21 H Creatinine 1.18 Estim Creat Clear Calc TNP Estimated GFR > 60 Random Glucose 120 H Calcium 9.4 Narrative Narrative: EKG 04/2024 EKG Details: EKG with sinus bradycardia, 56/Min; left bundle-branch block pattern. Normal [place] and corrected QT. ECHO 03/2024 Conclusions: - The left ventricular systolic function is mildly decreased. The calculated ejection fraction is 46% by biplane method. - No obvious valvular pathology seen on this study. (upon comparison of images, no major difference) Holter 2022 Holter, underlying sinus rhythm with an average rate of 56/Min. Frequent sinus bradycardia but nothing profound and no significant heart blocks or long pauses. coronary CTA 2022, minimal stenosis in the proximal/mid LAD; mild stenosis in the 1st diagonal Assessment and Plan Assessment Anesthesia Assessment: Chart Reviewed Final Anesthetic Review Family History of Problems with Anesthesia: Yes (Ponv in sister ) History of Problems with Anesthesia: No
[2024-11-04 10:08] VITALS: BMI 32.1
[2024-11-04 10:14] VITALS: BP 145/71; PULSE 45; RESP 15; TEMP 36.3; O2SAT 97
[2024-11-04] MEDS: Lactated Ringers 1,000 ML 100 ML IVCONT (10:30)
--- NOTE | 2024-11-04 16:15 | PM.EVENT ---
Event Note Date of Service: 11/04/24 Event Note: The patient was scheduled to have exam under anesthesia and removal of condyloma from the anus However, there have been delays in the OR Currently, we are waiting for 2 cases to finish and it is uncertain as to what time we will be able to start this case The patient has been waiting all day and did not want to wait for tonight He is going to be rescheduled Time Spent With Patient Time: Total time managing care of this patient today ____ minutes.
== END ==
LOC: HO.SSS 09:54
PROVIDERS: Nurse Practitioner; Visit Provider Surgery
DX: A63.0 Anogenital (venereal) warts (principal); Z53.29 Procedure and treatment not carried out because of patient's decision for other reasons
CPT/HCPCS: 36415; 80048; 85027

== ENCOUNTER 2024-11-25 12:03 | Day surgery (SDC) | payer OTHER, SELFPAY ==
--- OUTSIDE RECORDS SUMMARY | 2024-11-05 13:44 | XMS_ITS | Patient Health Record ---
Author Organization [facility] Address [address] [place] [address] Care Team Providers Care Bank Representative Name Role Phone Jagdeep Lopes Primary Care Provider Daniel Carl Jr Unavailable [phone] Allergies Allergen (clinical drug ingredient) Drug/Non Drug [...] Problem Status W/U Status Risk Notes Problem 543917847 Colon cancer screening (Z12.11) Active confirmed Problem 452918295 Encounter for ot her preprocedural examination (Z01.818) Active confirmed Problem 493189767 Diverticulosis o f large intestine without hemorrhage (K57.30) Active confirmed Problem 542556520 NSAID long-term use (Z79.1) Active confirmed Plan Of Treatment Future Test Test Name Order Date COLONOSCOPY 07/22/2015 COLONOSCOPY 07/11/2021 Insurance Providers Payer Name Payer Address Payer Phone Subscriber Number Group Number Insured Name Patient Relationship to Insured Coverage Start Date Coverage End Date [employer] [address] [address] [place] [address] [id number] NATHAN SALAS Self - patient is the insured Medical (General) History Medical History History ICD Code left bundle-branch block hypertension Surgical History Surgery Date(Month/Year) hernia repair 1976 knee replacements x 2
[2024-11-21 10:20] VITALS: BMI 32.1
--- NOTE | 2024-11-21 10:33 | P.CONAN_ITS ---
Documented by User: Hannah Mcginnis NP 11/21/24 10:35 HPI - Anesthesia Eval Consult details Narrative: 69yo M for EUA,Excision of Anal Condyloma Prev resched d/t delays in OR Cardiac optimized. Follows [facility] Cardiology for isaias, LBBB, HTN. Stable at 04/2024 office visit for 1 year routine f/u [facility] Active Problems Active Problems: All Active Problems Obstructive sleep apnea (Acute) History of condyloma acuminatum (Acute) Anal condyloma (Acute) Sinus bradycardia (Acute) Essential hypertension (Acute) Family history of sudden cardiac in son (Acute) LBBB (left bundle branch block) (Acute) Past Medical History Medical History (Updated 11/04/24 @ 10:32 by Asha Vieira RN) MAYRA on CPAP Benign essential tremor History of condyloma acuminatum Kidney, benign tumor Anxiety Anal condyloma Sinus bradycardia Essential hypertension Family history of sudden cardiac in son LBBB (left bundle branch block) Family History Family History Father Myocardial infarction Brother HTN (hypertension) Sister Melanoma Family history of problems with anesthesia: Yes (Ponv in sister ) Surgical History Surgical History Hx of inguinal hernia surgery Hx of colonoscopy History of total bilateral knee replacement (TKR) History of Problems with Anesthesia: No Social History Social History Household Members: Spouse Alcohol intake: current Alcohol intake frequency: a few times a week Comment: counts correct Patient Tobacco Use Status: Former Tobacco user Advance Directives: No Advance Directives Information Provided: Yes Current occupational status: employed Current occupation: [employer] Allergies Allergy/AdvReac Type Severity Reaction Status Date / Time No Known Allergies Allergy Verified 11/04/24 10:08 Home Medications ?Medication ?Instructions ?Recorded ?Confirmed ?Last Taken ?Type sertraline 50 mg tablet 50 mg PO BEDTIME 04/01/2011/24/24 18:00 History losartan 25 mg tablet 25 mg PO BEDTIME 06/07/2111/24/24 18:00 History atorvastatin 10 mg tablet 10 mg PO BEDTIME 04/09/2311/24/24 18:00 History Exam Height,Weight and Vital Signs: Height 5 ft 8 in Weight 95.708 kg Narrative Narrative: EKG 04/2024 EKG Details: EKG with sinus bradycardia, 56/Min; left bundle-branch block pattern. Normal [place] and corrected QT. ECHO 03/2024 Conclusions: - The left ventricular systolic function is mildly decreased. The calculated ejection fraction is 46% by biplane method. - No obvious valvular pathology seen on this study. Holter 2022 1. Patient was monitored for total period of 7 days 2. Baseline was normal sinus rhythm with average heart of 56 beats per minute 3. Frequent sinus bradycardia with 67% of time heart rate below 60 beats per minute with no significant pauses 4. Frequent PVCs with total burden of 1.5% with 1 4 beat radha of nonsustained VT at 121 beats per minute 5. Occasional PACs noted with no significant SVT episodes 6. No patient reported events but marked the counter 1 time which correlated with PVCs Assessment and Plan Assessment Anesthesia Assessment: Chart Reviewed Final Anesthetic Review Family History of Problems with Anesthesia: Yes (Ponv in sister ) History of Problems with Anesthesia: No Documented by User: Chavez Scott MD 11/25/24 15:39 [facility] Past Medical History Medical History (Updated 11/04/24 @ 10:32 by Asha Vieira RN) MAYRA on CPAP Benign essential tremor History of condyloma acuminatum Kidney, benign tumor Anxiety Anal condyloma Sinus bradycardia Essential hypertension Family history of sudden cardiac in son LBBB (left bundle branch block) Family History Family History Father Myocardial infarction Brother HTN (hypertension) Sister Melanoma Surgical History Surgical History Hx of inguinal hernia surgery Hx of colonoscopy History of total bilateral knee replacement (TKR) Social History Social History Household Members: Spouse Alcohol intake: current Alcohol intake frequency: a few times a week Comment: counts correct Patient Tobacco Use Status: Former Tobacco user Advance Directives: No Advance Directives Information Provided: Yes Current occupational status: employed Current occupation: [employer] Allergies Allergy/AdvReac Type Severity Reaction Status Date / Time No Known Allergies Allergy Verified 11/04/24 10:08 Home Medications ?Medication ?Instructions ?Recorded ?Confirmed ?Last Taken ?Type sertraline 50 mg tablet 50 mg PO BEDTIME 04/01/2011/24/24 18:00 History losartan 25 mg tablet 25 mg PO BEDTIME 06/07/2111/24/24 18:00 History atorvastatin 10 mg tablet 10 mg PO BEDTIME 04/09/2311/24/24 18:00 History Exam Airway Mallampati Class: II TM Dist: >3cm Neck ROM: Full Loose/Missing/Broken Teeth: Yes Assessment and Plan Assessment Anesthesia Assessment: Anesthesia Plan Discussed Final Anesthetic Review NPO: Yes ASA Class: III Final Preanesthetic Review: No Changes in Pt Med Stat, Meds/Allgs Chart Rev iewed, Consent Obtained/Reviewed and Anes Risks/Benef Reviewed Patient Risk: Intermediate Procedure Risk: Low Anesthetic Plan Anesthetic Plan: MAC: Disposition: Standard PACU
[2024-11-25 12:22] VITALS: BP 136/68; PULSE 46; RESP 16; TEMP 36.3; O2SAT 98
[2024-11-25] MEDS: Lactated Ringers 1,000 ML 100 ML IVCONT (12:24)
--- NOTE | 2024-11-25 12:33 | MHC.SHP ---
Pre-Procedural Eval Section A - 24 Hr Update-Section A only Date of Service: 11/25/24 Section B - Complete if H&P > 30 days Chief Complaint: Anogenital (venereal) warts Details of Present Illness: Has small condylomatous lesions in the perianal area Relevant Family History (Specify if Yes): No Relevant Social History: None Present Medications: see Short Stay Collaborative assessment Medical History: Significant History (Hypertension, sinus bradycardia, sleep apnea) Allergies: Allergies Allergy/AdvReac Type Severity Reaction Status Date / Time No Known Allergies Allergy Verified 11/04/24 10:08 Review of Systems Sugical H&P ROS: Negative: Constitution, Cardiovascular and Respiratory Exam Surgical H&P Exam: Normal: Heart, Normal: Lungs and Normal: Abdomen Plan Diagnosis/Plan: Unchanged I have reviewed the history and physical and performed a pertinent physical examination on my patient. No changes have occurred unless specified. Time Spent With Patient Time: Total time managing care of this patient today ____ minutes.
--- NOTE | 2024-11-25 13:28 | W.PM.OPN ---
Operative Note Operative Note Date of Service: 11/25/24 Narrative: Preop diagnosis: Anal condyloma Postop diagnosis: The same Procedure: Exam under anesthesia, excision and fulguration of anal condyloma Surgeon: Brian Rutherford MD Shank Stapler: CHRIS Gerber student The patient is a 69-year-old male, who has had a history of condylomatous lesions in the distant past, referred to me for condylomas of the anal area. He understood the technique of exam under anesthesia and excision/fulguration of the anal condyloma. He is aware of the risks, benefits, and alternatives. He was brought to the operating room and placed in prone romain-knife position under monitored anesthesia care. Buttocks were retracted with wide tape laterally. The perianal area was prepped and draped in the usual sterile fashion. A surgical time-out was done. The patient received Cefotan 2 g IV preoperatively The perianal area was infiltrated with lidocaine 1%. There was note of small condylomatous lesions in the perianal skin. I inserted the Claudia Uribe retractor. I examined the anal canal circumferentially. He had some hemorrhoidal tissue both internal external. There was note of 1 or 2 small condylomatous lesions in the anal canal itself. One of these was excised and sent as a specimen. I closed the excision site with a [id number] chromic 3-0 stitch for hemostasis The rest of the condylomatous lesions in the anal canal as well as in the perianal skin were cauterized. There were about 4 condylomatous lesions fulgurated, each on about 2 mm in size The area was then infiltrated with Marcaine 0.5% for postop analgesia. Dressings were applied and the procedure was completed. He tolerated procedure well. There were no immediate complications Was transferred to the recovery room with stable vital signs.
[2024-11-25 13:33] VITALS: BP 115/59; PULSE 48; RESP 16; TEMP 36.2; O2SAT 97
[2024-11-25 13:48] VITALS: BP 145/70; PULSE 45; RESP 18; TEMP 36.3; O2SAT 99
== END 2024-11-25 14:17 | disposition home or self-care (01) ==
PROVIDERS: Visit Provider Surgery
PROC: (CPT 46924; principal; 2024-11-25 16:20)
DX: A63.0 Anogenital (venereal) warts (principal); K62.82 Dysplasia of anus; K64.8 Other hemorrhoids; I10 Essential (primary) hypertension; I44.7 Left bundle-branch block, unspecified; R00.1 Bradycardia, unspecified; G25.0 Essential tremor; F41.9 Anxiety disorder, unspecified; Z98.890 Other specified postprocedural states
CPT/HCPCS: 46924; 88305; 88341; 88342; J2003; J2795

== ENCOUNTER → 2024-11-25 12:03 | Outpatient (BNV) | payer OTHER, SELFPAY | PROVIDERS: Visit Provider Surgery | DX: A63.0 Anogenital (venereal) warts (principal) | CPT/HCPCS: 46922 ==

== ENCOUNTER 2024-12-10 10:19 | Outpatient (AMB) | payer OTHER, SELFPAY ==
[2024-12-10 10:20] VITALS: BP 138/65; PULSE 84; BMI 32.1
--- NOTE | 2024-12-10 10:20 | A.OFFVIS_ITS ---
Vital Signs 12/10/24 10:20 Height 5 ft 8 in Weight 211 lb 6 oz BMI 32.1 BP 138/65 Blood Pressure Location Rt brachial Position Sitting Pulse 84 Intake Visit Reasons: S/P excision anal condyloma Intake Note: This patient presents for an assessment for post-op status post Exam under anesthesia, excision and fulguration of anal condyloma. Pt c/o; no concerns or complaints at this time. Landcare Officer Required: No Accompanied by: Self / Same As Patient Allergies No Known Allergies Allergy (Verified 12/10/24 10:26) HPI HPI S/P excision anal condyloma: Details: He underwent fulguration and excision of perianal condylomas last 11/25/2024. He tolerated procedure well. He says he is doing well currently denies significant pain. [facility] Medical History MAYRA on CPAP Benign essential tremor History of condyloma acuminatum Kidney, benign tumor Anxiety Anal condyloma Sinus bradycardia Essential hypertension Family history of sudden cardiac in son LBBB (left bundle branch block) Surgical History Hx of surgical procedure (~11/25/24) Hx of inguinal hernia surgery Hx of colonoscopy History of total bilateral knee replacement (TKR) Family History Father Myocardial infarction Brother HTN (hypertension) Sister Melanoma Social History Household Members: Spouse Alcohol intake: current Alcohol intake frequency: a few times a week Comment: counts correct Patient Tobacco Use Status: Former Tobacco user Current occupational status: employed Current occupation: [employer] Review of Systems Const Denies chills and Denies fever(s) Card Denies dyspnea Resp Denies dyspnea GI Denies hematochezia Physical Exam Vital Signs: Last Vital Signs Pulse 84 12/10/24 10:20 BP 138/65 12/10/24 10:20 BMI result Body Mass Index 32.1 Const General: comfortable and no acute distress Resp Effort & Inspection: normal respiratory effort GI Other: Rectal exam shows the excision sites and fulguration sites in the perianal area to be well healed, not infected, no evidence of any inflammation Assessment & Plan Assessment & Plan (1) Anal condyloma: Code(s): A63.0 - Anogenital (venereal) warts Category: Medical Plan: Status post excision of the perianal and anal condylomas. His path report shows condylomas. All the sites are healing well. I will see him again in the office in about 1 year to re-examined and do an anoscopy He understands the plan. Coding Level of Care Code Global (57948) Diagnoses Anal condyloma A63.0
--- OUTSIDE RECORDS SUMMARY | 2024-12-10 12:11 | XMS_ITS | Patient Health Record ---
Author Organization [facility] Address [address] [place] [address] Care Team Providers Care Rn Clinician Name Role Phone Jagdeep Lopes Primary Care Provider Daniel Carl Jr Unavailable Allergies Allergen (clinical drug ingredient) Drug/Non Drug Allergy documented on EMR Reaction Allergy Type Onset Date Status seasonal (uncoded) Unknown Allergy A ctive Reason For Referral No Information Medications Medication SIG (Take, Route, Frequency, Duration) Notes Start Date End Date Status Losartan Potassium 25 MG 1 tablet Orally Once a day; Duration: 30 day(s) Active Flonase 50 MCG/ACT 1 [...] at 5:00 p.m. the day before the procedure; Duration: 1 day 07/11/2021 Active Immunizations Vaccine Route Administration Date Status Comme nts Influenza Unknown 12/14/2020 Administered Problems Problem Type SNOMED Code ICD Code Onset Dates Problem Status W/U Status Risk Notes Problem Colon cancer screening (150608733) Colon cancer screening (Z12.11) Active confirmed Problem Pre-procedure evaluation check (520367407) Encounter for other preprocedural examination (Z01.818) Active confirmed Problem Diverticular disease of colon (279152108) Diverticulosis of large intestine without hemorrhage (K57.30) Active confirmed Problem exterminator current use of non-steroidal anti-inflammator y drug (189061732349262 ) NSAID long-term use (Z79.1) Active confirmed Plan Of Treatment Future Test Test Name Order Date COLONOSCOPY 07/22/2015 COLONOSCOPY 07/11/2021 Insurance Providers Payer Name Payer Address Payer Phone Subscriber Number Group Number Insured Name Patient Relationship to Insured Coverage Start Date Coverage End Date [employer] [place] [address] [address] [place] [address] [id number] NATHAN SALAS Self - patient is the insured Medical (General) History Medical History History ICD Code left bundle-branch block hypertension Surgical History Surgery Date(Month/Year) hernia repair 1976 knee replacements x 2
== END 2024-12-10 10:30 | disposition home or self-care (01) ==
LOC: HO.HGS 10:19
PROVIDERS: Visit Provider Surgery
DX: A63.0 Anogenital (venereal) warts (principal)
CPT/HCPCS: 99024

== ENCOUNTER 2025-01-01 09:38 | Outpatient (REF) | payer SELFPAY ==
--- OUTSIDE RECORDS SUMMARY | 2025-01-01 10:51 | XMS_ITS | Patient Health Record ---
Author Organization [facility] Address [address] [place] [address] Care Team Providers Care Kettle Tender Name Role Phone Jagdeep Lopes Primary Care Provider Daniel Carl Jr Unavailable [phone] Allergies Allergen (clinical drug ingredient) Drug/Non Drug [...] Status Risk Notes Problem Colon cancer screening (434052561) Colon cancer screening (Z12.11) Active confirmed Problem Pre-procedure evaluation check (049445502) Encounter for other preprocedural examination (Z01.818) Active confirmed Problem Diverticular disease of colon (659246846) Diverticulosis of large intestine without hemorrhage (K57.30) Active confirmed Problem supervisor intermediates current use of non-steroidal anti-inflammator y drug (023338054802398 ) NSAID long-term use (Z79.1) Active confirmed Plan Of Treatment Future Test Test Name Order Date COLONOSCOPY 07/22/2015 COLONOSCOPY 07/11/2021 Insurance Providers Payer Name Payer Address Payer Phone Subscriber Number Group Number Insured Name Patient Relationship to Insured Coverage Start Date Coverage End Date [employer] [place] [address] [address] [place] [address] [id number] NATHAN SALAS Self - patient is the insured Medical (General) History Medical History History ICD Code left bundle-branch block hypertension Surgical History Surgery Date(Month/Year) hernia repair 1976 knee replacements x 2
== END 2025-01-01 09:39 | disposition home or self-care (01) ==
LOC: HO.HAP 09:38
PROVIDERS: Visit Provider Physician Assistant Medical
DX: Z46.1 Encounter for fitting and adjustment of hearing aid (principal); H90.3 Sensorineural hearing loss, bilateral; H93.19 Tinnitus, unspecified ear
CPT/HCPCS: V5267